=== PATIENT | female | born 1985 | race African-American/Black ===

== ENCOUNTER 2021-11-25 15:37 | Inpatient (IN) | payer MEDICAID ==
[~2021-11-25] VITALS: Ht 175.3 cm; Wt 56.7 kg
[~2021-11-25 15:37] MED LIST: ACET325T53 GT; BLOO-360 XX; INSU100V SQ; INSU100V9 SQ; LOVI40 SQ; METO-442 GT; PRO40 GT
[2021-11-25 15:40] VITALS: BP_SYST 102
[2021-11-25] MEDS ORDERED: levETIRAcetam 1,000 MG IV BAG 100 ML IV ONE (15:45)
[2021-11-25] MEDS ORDERED: PIPERACILLIN/TAZO 3.375 GM in NS 50 ML IV ONE (16:15)
[2021-11-25] MEDS ORDERED: VANCOMYCIN HCL 1,000 MG in NS 250 ML IV ONE (16:15)
[2021-11-25 16:24] LABS: BASOPHILS # (AUTO) 0.1 K/uL (0.0-0.2); BASOPHILS % (AUTO) 3.7 % (0.0-2.0); EOSINOPHILS # (AUTO) 0.1 K/uL (0.0-0.4); EOSINOPHILS % (AUTO) 1.7 % (0.0-4.0); HEMATOCRIT 38.8 % (36-48); LYMPHOCYTES % (AUTO) 26.2 % (20.5-51.5); MEAN CORPUSCULAR HEMOGLOBIN 28 pg (27-31); MEAN CORPUSCULAR HGB CONC 34 % (32-36); MEAN CORPUSCULAR VOLUME 84 fL (79.0-98.0); MONOCYTES # (AUTO) 0.1 K/uL (0.0-1.0); MONOCYTES % (AUTO) 3.3 % (1.7-9.3); NEUTROPHILS # (AUTO) 2.5 K/uL (1.8-7.7); NEUTROPHILS % (AUTO) 65.1 % (40.0-70.0); PLATELET COUNT (AUTO) 249 K/uL (130-430); RED BLOOD CELL COUNT(AUTO) 4.64 MIL/uL (4.2-6.2); RED CELL DISTRIBUTION WIDTH 14.7 % (9.0-15.0); WHITE BLOOD COUNT (AUTO) 3.9 K/uL (4.8-10.8)
[2021-11-25 16:39] LABS: CALCIUM 9.9 mg/dL (8.4-11.0); CREATININE 0.77 mg/dL (0.55-1.30); POTASSIUM 3.9 mmol/L (3.5-5.1)
[2021-11-25 16:44] LABS: ALBUMIN 3.2 g/dL (3.4-4.8); TOTAL BILIRUBIN 0.1 mg/dL (0.0-1.0)
[2021-11-25] MEDS ORDERED: VANCOMYCIN HCL 1000 MG/VIAL IV ONE (17:20)
[2021-11-25 17:25] LABS: BILIRUBIN,URINE NEGATIVE (NEGATIVE); COLOR,URINE YELLOW (YELLOW); GLUCOSE,URINE NEGATIVE (NEGATIVE); KETONES,URINE NEGATIVE (NEGATIVE); LEUKOCYTE ESTERASE ,URINE NEGATIVE (NEGATIVE); NITRITE, URINE NEGATIVE (NEGATIVE); PROTEIN URINE NEGATIVE (NEGATIVE); UROBILINOGEN,URINE 0.2 (0.2-1.0)
[2021-11-25 17:27] LABS: BLOOD, URINE TRACE (NEGATIVE); CLARITY/URINE HAZY (CLEAR)
[2021-11-25 17:47] LABS: BACTERIA,URINE MODERATE /HPF (None Seen); MUCUS,URINE 1+ /LPF (None Seen); RBC,URINE 0-3 /HPF (0-3); WBC,URINE 0-3 /HPF (0-3)
[2021-11-25] MEDS ORDERED: D5/0.45 NS 1,000 ML IV ONE (20:00)
[2021-11-25 20:48] VITALS: BP_SYST 131
[2021-11-25 23:56] VITALS: BP_SYST 137
[2021-11-26 01:02] VITALS: BP_SYST 127
[2021-11-26 07:50] VITALS: BP_SYST 109
[2021-11-26 08:00] VITALS: BP_SYST 119
[2021-11-26] MEDS ORDERED: HYDROcodone/ACETAMIN 5-325 MG TAB (NORCO/ VICODIN) GT PRN (11:30)
[2021-11-26] MEDS ORDERED: ACETAMINOPHEN 325 MG TABLET GT SCH (11:30)
[2021-11-26] MEDS ORDERED: HYDROcodone/ACETAMIN 10-325 MG TAB GT PRN (11:30)
[2021-11-26] MEDS ORDERED: NALOXONE HCL 0.4 MG/ML AMP (NARCAN) IVP PRN ×2 (11:30)
[2021-11-26] MEDS ORDERED: LORazepam 2 MG/ML VIAL IVP PRN (11:30)
[2021-11-26] MEDS ORDERED: ONDANSETRON HCL 4 MG/2 ML VIAL IVP PRN (11:30)
[2021-11-26 11:35] VITALS: BP_SYST 114
[2021-11-26] MEDS ORDERED: ACETAMINOPHEN 325 MG TABLET GT PRN (11:45)
[2021-11-26] MEDS ORDERED: ACETAMINOPHEN 650 MG/20.3 ML UDC GT PRN ×2 (11:45)
[2021-11-26] MEDS: INSULIN REGULAR, HUMAN 100 UNITS/ML, 10 ML VIAL (humuLIN R) SUBCUT PRN ×2 (12:23→16:33)
[2021-11-26] MEDS: PIPERACILLIN/TAZO 3.375/DEX-IS 50 ML IV SCH ×2 (12:30→17:12)
[2021-11-26] MEDS: ALBUTEROL SULFATE 0.083% 2.5 MG/3 ML VIAL.NEB INH SCH ×3 (15:00→23:49)
[2021-11-26] MEDS: IPRATROPIUM BROM 0.5 MG/2.5 ML VIAL.NEB (ATROVENT) INH SCH ×3 (15:00→23:49)
[2021-11-26 15:31] VITALS: BP_SYST 120
[2021-11-26 20:50] VITALS: BP_SYST 145
[2021-11-26] MEDS: METOPROLOL TARTRATE 50 MG TABLET GT SCH (22:42)
[2021-11-26] MEDS: INSULIN GLARGINE 100 UNITS/ML 10 ML VIAL SQ SCH (22:49)
[2021-11-27 00:12] VITALS: BP_SYST 127
[2021-11-27] MEDS: PIPERACILLIN/TAZO 3.375/DEX-IS 50 ML IV SCH ×2 (00:21→06:02)
[2021-11-27] MEDS: IPRATROPIUM BROM 0.5 MG/2.5 ML VIAL.NEB (ATROVENT) INH SCH ×5 (03:22→23:28)
[2021-11-27] MEDS: ALBUTEROL SULFATE 0.083% 2.5 MG/3 ML VIAL.NEB INH SCH ×6 (03:22→23:28)
[2021-11-27 07:11] LABS: BASOPHILS % (AUTO) 0.5 % (0.0-2.0); EOSINOPHILS # (AUTO) 0.1 K/uL (0.0-0.4); EOSINOPHILS % (AUTO) 1.6 % (0.0-4.0); HEMATOCRIT 38.4 % (36-48); HEMOGLOBIN 12.5 g/dL (12.0-16.0); LYMPHOCYTES # (AUTO) 1.5 K/uL (1.0-5.5); LYMPHOCYTES % (AUTO) 28.3 % (20.5-51.5); MEAN CORPUSCULAR HEMOGLOBIN 27 pg (27-31); MEAN CORPUSCULAR HGB CONC 33 % (32-36); MEAN CORPUSCULAR VOLUME 84 fL (79.0-98.0); MONOCYTES # (AUTO) 0.5 K/uL (0.0-1.0); MONOCYTES % (AUTO) 9.7 % (1.7-9.3); NEUTROPHILS # (AUTO) 3.1 K/uL (1.8-7.7); NEUTROPHILS % (AUTO) 59.9 % (40.0-70.0); PLATELET COUNT (AUTO) 271 K/uL (130-430); RED BLOOD CELL COUNT(AUTO) 4.58 MIL/uL (4.2-6.2); RED CELL DISTRIBUTION WIDTH 14.9 % (9.0-15.0); WHITE BLOOD COUNT (AUTO) 5.2 K/uL (4.8-10.8)
[2021-11-27 07:38] LABS: ALBUMIN 3.1 g/dL (3.4-4.8); CALCIUM 9.7 mg/dL (8.4-11.0); CREATININE 0.88 mg/dL (0.55-1.30); PHOSPHORUS 5.2 mg/dL (2.7-4.5); POTASSIUM 4.2 mmol/L (3.5-5.1); TOTAL BILIRUBIN 0.3 mg/dL (0.0-1.0)
[2021-11-27] MEDS ORDERED: LORazepam 2 MG/ML VIAL IVP ONE (07:45)
[2021-11-27 07:50] VITALS: BP_SYST 107
[2021-11-27 07:56] VITALS: BP_SYST 107
[2021-11-27] MEDS ORDERED: PANTOPRAZOLE SODIUM 40 MG TAB GT SCH (09:00)
[2021-11-27] MEDS: D5/0.45 NS 1,000 ML IV SCH ×2 (09:29→22:38)
[2021-11-27] MEDS: LANSOPRAZOLE 30 MG CAPSULE.DR GT SCH (09:29)
[2021-11-27] MEDS: METOPROLOL TARTRATE 50 MG TABLET GT SCH ×2 (09:30→21:00)
[2021-11-27] MEDS: ENOXAPARIN SODIUM 40 MG/0.4 ML SYRINGE SQ SCH (09:32)
[2021-11-27] MEDS: levETIRAcetam 1,000 MG in NS 100 ML IV SCH ×2 (10:02→22:15)
[2021-11-27] MEDS: INSULIN GLARGINE 100 UNITS/ML 10 ML VIAL SQ SCH ×2 (11:02→22:21)
[2021-11-27] MEDS: INSULIN REGULAR, HUMAN 100 UNITS/ML, 10 ML VIAL (humuLIN R) SUBCUT PRN (11:05)
[2021-11-27 12:25] VITALS: BP_SYST 110
[2021-11-27 16:14] VITALS: BP_SYST 114
[2021-11-27 20:00] VITALS: BP_SYST 123
[2021-11-27] MEDS: clonazePAM 0.5 MG TABLET PO SCH (22:17)
[2021-11-28 00:35] VITALS: BP_SYST 115
[2021-11-28] MEDS ORDERED: LORazepam 2 MG/ML VIAL IVP PRN (06:45)
[2021-11-28 06:46] LABS: CALCIUM 8.8 mg/dL (8.4-11.0); CREATININE 0.7 mg/dL (0.55-1.30); POTASSIUM 3.6 mmol/L (3.5-5.1)
[2021-11-28 07:29] LABS: BASOPHILS % (AUTO) 0.6 % (0.0-2.0); EOSINOPHILS # (AUTO) 0.2 K/uL (0.0-0.4); EOSINOPHILS % (AUTO) 5.3 % (0.0-4.0); HEMATOCRIT 33.4 % (36-48); HEMOGLOBIN 11.1 g/dL (12.0-16.0); LYMPHOCYTES # (AUTO) 1.4 K/uL (1.0-5.5); LYMPHOCYTES % (AUTO) 35.5 % (20.5-51.5); MEAN CORPUSCULAR HEMOGLOBIN 28 pg (27-31); MEAN CORPUSCULAR HGB CONC 33 % (32-36); MEAN CORPUSCULAR VOLUME 84 fL (79.0-98.0); MONOCYTES # (AUTO) 0.3 K/uL (0.0-1.0); MONOCYTES % (AUTO) 8.7 % (1.7-9.3); NEUTROPHILS # (AUTO) 1.9 K/uL (1.8-7.7); NEUTROPHILS % (AUTO) 49.9 % (40.0-70.0); PLATELET COUNT (AUTO) 257 K/uL (130-430); RED BLOOD CELL COUNT(AUTO) 3.98 MIL/uL (4.2-6.2); RED CELL DISTRIBUTION WIDTH 14.8 % (9.0-15.0); WHITE BLOOD COUNT (AUTO) 3.8 K/uL (4.8-10.8)
[2021-11-28] MEDS: IPRATROPIUM BROM 0.5 MG/2.5 ML VIAL.NEB (ATROVENT) INH SCH ×4 (07:34→20:13)
[2021-11-28] MEDS: ALBUTEROL SULFATE 0.083% 2.5 MG/3 ML VIAL.NEB INH SCH ×4 (07:34→20:13)
[2021-11-28 08:00] VITALS: BP_SYST 141
[2021-11-28] MEDS: D5/0.45 NS 1,000 ML IV SCH (10:01)
[2021-11-28] MEDS: clonazePAM 0.5 MG TABLET PO SCH ×2 (10:02→21:55)
[2021-11-28] MEDS: LANSOPRAZOLE 30 MG CAPSULE.DR GT SCH (10:02)
[2021-11-28] MEDS: METOPROLOL TARTRATE 50 MG TABLET GT SCH ×2 (10:02→21:00)
[2021-11-28] MEDS: INSULIN GLARGINE 100 UNITS/ML 10 ML VIAL SQ SCH ×2 (10:13→21:00)
[2021-11-28] MEDS: ENOXAPARIN SODIUM 40 MG/0.4 ML SYRINGE SQ SCH (10:15)
[2021-11-28] MEDS: levETIRAcetam 1,000 MG in NS 100 ML IV SCH ×2 (10:44→21:57)
[2021-11-28 12:00] VITALS: BP_SYST 137
[2021-11-28] MEDS ORDERED: cefTRIAXone 1 GM in D5W 50 ML IV SCH (12:00)
[2021-11-28 16:00] VITALS: BP_SYST 119
[2021-11-28] MEDS: DEXTROSE 50% JECT 50 ML DISP.SYRIN IVP PRN ×2 (18:59→22:11)
[2021-11-28 20:00] VITALS: BP_SYST 106
[2021-11-29] MEDS: ALBUTEROL SULFATE 0.083% 2.5 MG/3 ML VIAL.NEB INH SCH ×7 (00:04→23:34)
[2021-11-29] MEDS: IPRATROPIUM BROM 0.5 MG/2.5 ML VIAL.NEB (ATROVENT) INH SCH ×7 (00:04→23:34)
[2021-11-29] MEDS ORDERED: CIPROFLOXACIN LACT 400 MG/D5W 200 ML IV ONE (00:52)
[2021-11-29 00:56] VITALS: BP_SYST 132
[2021-11-29] MEDS: CIPROFLOXACIN LACT 400 MG/D5W 200 ML IV SCH ×3 (01:24→20:38)
[2021-11-29 08:01] LABS: ALANINE AMINOTRANSFERASE 43 U/L (12-78); ANION GAP 10 (5-15); ASPARTATE AMINOTRANSFERASE 21 U/L (10-37); CALCIUM 8.8 mg/dL (8.4-11.0); CHLORIDE 107 mmol/L (98-107); CREATININE 0.71 mg/dL (0.55-1.30); GLUCOSE 108 mg/dL (70-99); POTASSIUM 3.9 mmol/L (3.5-5.1); SODIUM SERUM 140 mmol/L (136-145); TOTAL BILIRUBIN < 0.1 mg/dL (0.0-1.0); UREA NITROGEN, BLOOD 9 mg/dL (8-21)
[2021-11-29 08:12] LABS: BASOPHILS % (AUTO) 0.6 % (0.0-2.0); EOSINOPHILS # (AUTO) 0.1 K/uL (0.0-0.4); HEMATOCRIT 34.4 % (36-48); HEMOGLOBIN 11.3 g/dL (12.0-16.0); LYMPHOCYTES # (AUTO) 1.5 K/uL (1.0-5.5); LYMPHOCYTES % (AUTO) 41.5 % (20.5-51.5); MEAN CORPUSCULAR HEMOGLOBIN 28 pg (27-31); MEAN CORPUSCULAR HGB CONC 33 % (32-36); MEAN CORPUSCULAR VOLUME 85 fL (79.0-98.0); MONOCYTES # (AUTO) 0.2 K/uL (0.0-1.0); MONOCYTES % (AUTO) 5.9 % (1.7-9.3); NEUTROPHILS # (AUTO) 1.7 K/uL (1.8-7.7); PLATELET COUNT (AUTO) 252 K/uL (130-430); RED BLOOD CELL COUNT(AUTO) 4.06 MIL/uL (4.2-6.2); RED CELL DISTRIBUTION WIDTH 14.7 % (9.0-15.0); WHITE BLOOD COUNT (AUTO) 3.6 K/uL (4.8-10.8)
[2021-11-29 08:14] LABS: GFR AFRICAN AMERICAN 119 mL/min (>90)
[2021-11-29 09:07] LABS: ERYTHROCYTE SEDIMENTATION RATE 46 MM/HR (0-20)
[2021-11-29] MEDS: LANSOPRAZOLE 30 MG CAPSULE.DR GT SCH (10:03)
[2021-11-29] MEDS: clonazePAM 0.5 MG TABLET PO SCH ×2 (10:03→20:37)
[2021-11-29] MEDS: METOPROLOL TARTRATE 50 MG TABLET GT SCH (10:04)
[2021-11-29] MEDS: levETIRAcetam 1,000 MG in NS 100 ML IV SCH ×2 (10:05→19:46)
[2021-11-29] MEDS: ENOXAPARIN SODIUM 40 MG/0.4 ML SYRINGE SQ SCH (10:06)
[2021-11-29 11:33] LABS: FREE T4 (FREE THYROXINE) 1.3 ng/dl (0.8-1.5); THYROID STIMULATING HORMONE 3.17 uIu/mL (0.36-3.74)
[2021-11-29 12:10] VITALS: BP_SYST 125
[2021-11-29 16:11] VITALS: BP_SYST 124
[2021-11-29 19:54] VITALS: BP_SYST 138
[2021-11-29] MEDS: INSULIN REGULAR, HUMAN 100 UNITS/ML, 10 ML VIAL (humuLIN R) SUBCUT PRN (23:35)
[2021-11-30 00:37] VITALS: BP_SYST 146
[2021-11-30] MEDS: IPRATROPIUM BROM 0.5 MG/2.5 ML VIAL.NEB (ATROVENT) INH SCH ×6 (03:47→23:39)
[2021-11-30] MEDS: ALBUTEROL SULFATE 0.083% 2.5 MG/3 ML VIAL.NEB INH SCH ×6 (03:47→23:39)
[2021-11-30] MEDS: INSULIN REGULAR, HUMAN 100 UNITS/ML, 10 ML VIAL (humuLIN R) SUBCUT PRN ×3 (06:05→18:11)
[2021-11-30 07:55] LABS: BASOPHILS % (AUTO) 0.5 % (0.0-2.0); EOSINOPHILS # (AUTO) 0.1 K/uL (0.0-0.4); EOSINOPHILS % (AUTO) 1.3 % (0.0-4.0); HEMATOCRIT 33.9 % (36-48); HEMOGLOBIN 11.1 g/dL (12.0-16.0); LYMPHOCYTES # (AUTO) 0.9 K/uL (1.0-5.5); LYMPHOCYTES % (AUTO) 9.8 % (20.5-51.5); MEAN CORPUSCULAR HEMOGLOBIN 28 pg (27-31); MEAN CORPUSCULAR HGB CONC 33 % (32-36); MEAN CORPUSCULAR VOLUME 84 fL (79.0-98.0); MONOCYTES # (AUTO) 0.4 K/uL (0.0-1.0); MONOCYTES % (AUTO) 4.2 % (1.7-9.3); NEUTROPHILS # (AUTO) 7.4 K/uL (1.8-7.7); NEUTROPHILS % (AUTO) 84.2 % (40.0-70.0); PLATELET COUNT (AUTO) 292 K/uL (130-430); RED BLOOD CELL COUNT(AUTO) 4.02 MIL/uL (4.2-6.2); RED CELL DISTRIBUTION WIDTH 15.2 % (9.0-15.0); WHITE BLOOD COUNT (AUTO) 8.8 K/uL (4.8-10.8)
[2021-11-30 07:56] LABS: C-REACTIVE PROTEIN QUANT 1.1 mg/dL (0-0.5); CALCIUM 9.2 mg/dL (8.4-11.0); CREATININE 0.73 mg/dL (0.55-1.30)
[2021-11-30 09:19] LABS: ERYTHROCYTE SEDIMENTATION RATE 36 MM/HR (0-20)
[2021-11-30] MEDS: METOPROLOL TARTRATE 50 MG TABLET PO SCH ×2 (10:16→21:54)
[2021-11-30] MEDS: LANSOPRAZOLE 30 MG CAPSULE.DR GT SCH (10:16)
[2021-11-30] MEDS: clonazePAM 0.5 MG TABLET PO SCH ×2 (10:16→21:54)
[2021-11-30] MEDS: CIPROFLOXACIN LACT 400 MG/D5W 200 ML IV SCH ×2 (10:17→21:54)
[2021-11-30] MEDS: ENOXAPARIN SODIUM 40 MG/0.4 ML SYRINGE SQ SCH (10:18)
[2021-11-30] MEDS: levETIRAcetam 1,000 MG in NS 100 ML IV SCH ×2 (10:19→21:57)
[2021-11-30] MEDS ORDERED: CIPR500T5 GT (10:55)
[2021-11-30] MEDS ORDERED: LEVE1000 GT (10:55)
[2021-11-30] MEDS ORDERED: KLO.5 GT (10:55)
[2021-11-30 11:28] VITALS: BP_SYST 109
[2021-11-30 15:52] VITALS: BP_SYST 110
[2021-11-30 19:55] VITALS: BP_SYST 105
[2021-12-01 01:21] VITALS: BP_SYST 106
[2021-12-01] MEDS: IPRATROPIUM BROM 0.5 MG/2.5 ML VIAL.NEB (ATROVENT) INH SCH ×3 (03:30→11:16)
[2021-12-01] MEDS: ALBUTEROL SULFATE 0.083% 2.5 MG/3 ML VIAL.NEB INH SCH ×3 (03:30→11:16)
[2021-12-01] MEDS: INSULIN REGULAR, HUMAN 100 UNITS/ML, 10 ML VIAL (humuLIN R) SUBCUT PRN ×2 (05:44→12:50)
[2021-12-01 07:32] LABS: BASOPHILS % (AUTO) 0.1 % (0.0-2.0); EOSINOPHILS # (AUTO) 0.1 K/uL (0.0-0.4); EOSINOPHILS % (AUTO) 0.5 % (0.0-4.0); HEMATOCRIT 30.5 % (36-48); HEMOGLOBIN 10.1 g/dL (12.0-16.0); LYMPHOCYTES # (AUTO) 1.3 K/uL (1.0-5.5); LYMPHOCYTES % (AUTO) 9.8 % (20.5-51.5); MEAN CORPUSCULAR HEMOGLOBIN 28 pg (27-31); MEAN CORPUSCULAR HGB CONC 33 % (32-36); MEAN CORPUSCULAR VOLUME 83 fL (79.0-98.0); MONOCYTES # (AUTO) 0.6 K/uL (0.0-1.0); MONOCYTES % (AUTO) 4.3 % (1.7-9.3); NEUTROPHILS % (AUTO) 85.3 % (40.0-70.0); PLATELET COUNT (AUTO) 255 K/uL (130-430); RED BLOOD CELL COUNT(AUTO) 3.66 MIL/uL (4.2-6.2); RED CELL DISTRIBUTION WIDTH 15.3 % (9.0-15.0)
[2021-12-01 08:21] LABS: ALBUMIN 2.6 g/dL (3.4-4.8); CALCIUM 8.6 mg/dL (8.4-11.0); CREATININE 0.88 mg/dL (0.55-1.30); POTASSIUM 3.7 mmol/L (3.5-5.1); TOTAL BILIRUBIN 0.1 mg/dL (0.0-1.0)
[2021-12-01 09:24] LABS: C-REACTIVE PROTEIN QUANT 26.9 mg/dL (0-0.5)
[2021-12-01] MEDS: levETIRAcetam 1,000 MG in NS 100 ML IV SCH (09:31)
[2021-12-01] MEDS: LANSOPRAZOLE 30 MG CAPSULE.DR GT SCH (09:32)
[2021-12-01] MEDS: CIPROFLOXACIN LACT 400 MG/D5W 200 ML IV SCH (09:33)
[2021-12-01] MEDS: clonazePAM 0.5 MG TABLET PO SCH (09:33)
[2021-12-01] MEDS: METOPROLOL TARTRATE 50 MG TABLET PO SCH (09:33)
[2021-12-01] MEDS: ENOXAPARIN SODIUM 40 MG/0.4 ML SYRINGE SQ SCH (09:34)
[2021-12-01 11:43] VITALS: BP_SYST 109
[2021-12-01 12:02] LABS: ERYTHROCYTE SEDIMENTATION RATE 65 MM/HR (0-20)
[2021-12-01 13:33] VITALS: BP_SYST 132
== END 2021-12-01 15:40 | DRG 720 ==
LOC: SED 15:37 → STU 19:47
PROVIDERS: ADMIT Preventive Medicine Preventive Medicine/Occupational Environmental Medicine; ATTEND Preventive Medicine Preventive Medicine/Occupational Environmental Medicine
PROC: 5A1955Z Respiratory Ventilation, Greater than 96 Consecutive Hours (ICD-10-PCS; principal; 2021-11-25)
DX: A41.9 Sepsis, unspecified organism (principal); J96.10 Chronic respiratory failure, unspecified whether with hypoxia or hypercapnia; J15.1 Pneumonia due to Pseudomonas; E83.39 Other disorders of phosphorus metabolism; E88.09 Other disorders of plasma-protein metabolism, not elsewhere classified; D64.9 Anemia, unspecified; E11.65 Type 2 diabetes mellitus with hyperglycemia; Z20.822 Contact with and (suspected) exposure to COVID-19; G40.409 Other generalized epilepsy and epileptic syndromes, not intractable, without status epilepticus; K21.9 Gastro-esophageal reflux disease without esophagitis; R13.10 Dysphagia, unspecified; Z86.73 Personal history of transient ischemic attack (TIA), and cerebral infarction without residual deficits; Z59.00 Homelessness unspecified; Z79.4 Long term (current) use of insulin; Z93.0 Tracheostomy status; Z99.11 Dependence on respirator [ventilator] status; Z79.899 Other long term (current) drug therapy
CPT/HCPCS: 36415; 71045; 80048; 80053; 81000; 82962; 83605; 83735; 84100; 84439; 84443; 85025; 85651-TC; 86140; 87040; 87070-TC; 87081; 87086; 87205-TC; 93005; 94002; 94003; 94640; 94760; 96365; 96367; 96368; 99291; G0378; J0696; J0744; J1650; J1815; J1953; J2405; J2543; J3370; J7060; J7613

== ENCOUNTER 2022-06-08 06:44 | Emergency (ER) | payer MEDICAID ==
[~2022-06-08] VITALS: Ht 170.2 cm; Wt 49.9 kg
[~2022-06-08 06:44] MED LIST changes: +CIPR500T5 GT; +KLO.5 GT; +LEVE1000 GT
--- NOTE | 2022-06-08 06:48 | NUR ---
PT RAYNA, MATTIE 63, FROM [facility] WITH C/O RESP DISTRESS. PER MEDIC REPORT, PT STARTED COUGHING AND DESATING TO 87% AFTER TRACH CHANGE AND 250ML FLUIDS SUCTIONED. PT CHRONIC VENT AND HAS G-TUBE IN PLACE. BLOOD GLUCOSE PER MEDIC WAS 307. MD AND RT AT BEDSIDE ON ARRIVAL.
--- NOTE | 2022-06-08 06:50 | NUR ---
Patient to ER bed 01 to gown for evaluation. Side rails up. Report given to DUSTIN VINCENT.
[2022-06-08 06:51] VITALS: BP_SYST 114
--- NOTE | 2022-06-08 07:07 | NUR ---
BLOOD GLUCOSE 313. MADE AWARE.
[2022-06-08 07:12] LABS: BASOPHILS % (AUTO) 0.4 % (0.0-2.0); EOSINOPHILS # (AUTO) 0.1 K/uL (0.0-0.4); EOSINOPHILS % (AUTO) 0.9 % (0.0-4.0); HEMATOCRIT 31.2 % (36-48); HEMOGLOBIN 10.5 g/dL (12.0-16.0); LYMPHOCYTES # (AUTO) 0.6 K/uL (1.0-5.5); LYMPHOCYTES % (AUTO) 10.1 % (20.5-51.5); MEAN CORPUSCULAR HEMOGLOBIN 28 pg (27-31); MEAN CORPUSCULAR HGB CONC 34 % (32-36); MEAN CORPUSCULAR VOLUME 84 fL (79.0-98.0); MONOCYTES # (AUTO) 0.5 K/uL (0.0-1.0); MONOCYTES % (AUTO) 8.7 % (1.7-9.3); NEUTROPHILS # (AUTO) 4.9 K/uL (1.8-7.7); NEUTROPHILS % (AUTO) 79.9 % (40.0-70.0); PLATELET COUNT (AUTO) 233 K/uL (130-430); RED CELL DISTRIBUTION WIDTH 14.9 % (9.0-15.0); WHITE BLOOD COUNT (AUTO) 6.2 K/uL (4.8-10.8)
[2022-06-08] MEDS ORDERED: NACL 0.9% 1,000 ML IV ONE (07:30)
[2022-06-08 07:39] LABS: ANION GAP 9 (5-15); CALCIUM 9.4 mg/dL (8.4-11.0); CHLORIDE 97 mmol/L (98-107); CREATININE 0.86 mg/dL (0.55-1.30); GLUCOSE 324 mg/dL (70-99); UREA NITROGEN, BLOOD 16 mg/dL (8-21)
[2022-06-08 07:44] LABS: GFR AFRICAN AMERICAN 95 mL/min (>90)
[2022-06-08] MEDS ORDERED: LORazepam 2 MG/ML VIAL IVP ONE (07:45)
[2022-06-08 07:47] LABS: ALANINE AMINOTRANSFERASE 36 U/L (12-78); ALBUMIN 2.8 g/dL (3.4-4.8); ASPARTATE AMINOTRANSFERASE 17 U/L (10-37); TOTAL BILIRUBIN 0.2 mg/dL (0.0-1.0)
--- NOTE | 2022-06-08 07:56 | NUR ---
Report received from plant operator/shift supervisor CARLTON Cevallos for continuity of care. Patient stable condition.
[2022-06-08 11:06] VITALS: BP_SYST 116
--- NOTE | 2022-06-08 11:12 | NUR ---
covid/flu swab collected
--- NOTE | 2022-06-08 11:33 | NUR ---
Patient was at yesterday when she "passed out" according to daughter and ambulance was called. Patient was ok to stay at . Patient was at assisted living today and she "vomited again and passed out today." Ambulance was called.
--- NOTE | 2022-06-08 12:52 | NUR ---
CRITICAL LAB: FLU A POSITIVE READ BY CHAO OF LAB NOTIFIED
[2022-06-08] MEDS ORDERED: OSEL6SUS4 GT (12:57)
--- NOTE | 2022-06-08 13:41 | NUR ---
Patient repositioned as appropriate. Changed as needed.
[2022-06-08] MEDS ORDERED: ACETAMINOPHEN 650 MG/20.3 ML UDC GT ONE (15:45)
== END 2022-06-08 18:05 | disposition home or self-care (01) ==
LOC: SED 06:44
DX: J10.1 Influenza due to other identified influenza virus with other respiratory manifestations (principal); J96.11 Chronic respiratory failure with hypoxia; R05.9 Cough, unspecified; Z79.4 Long term (current) use of insulin; Z79.899 Other long term (current) drug therapy; Z20.822 Contact with and (suspected) exposure to COVID-19
CPT/HCPCS: 99285; 96374; 71045; 96361; 87426; 80053; 82962; 83880; 85025; 84484; 36415; 93005; 94760; 87804 ×2; 94002; J2060; J7030

== ENCOUNTER 2022-06-10 19:59 | Inpatient (IN) | payer MEDICAID ==
[~2022-06-10] VITALS: Ht 175.3 cm; Wt 53.5 kg
[~2022-06-10 19:59] MED LIST changes: +OSEL6SUS4 GT
--- NOTE | 2022-06-10 20:15 | NUR ---
Sing at bedside examining pt.
--- NOTE | 2022-06-10 20:15 | NUR ---
Patient triaged and placed in ED rm 6. VSS and patient appears in no acute distress at this time. MD Bull notified of need for MSE. RT at bedside. Report given to CARLTON Zapata.
--- NOTE | 2022-06-10 20:20 | NUR ---
RT at bedside.
--- NOTE | 2022-06-10 20:20 | NUR ---
Patient presents to ED from [facility] with c/o vomiting x1 today and desaturating to 80's. Patient is vent dependent. Per [facility] patient was suctioned and bagged on way to ED. RT is at bedside upon patient arrival. Patient is A/Ox2 and bed bound at baseline. ER MD Bal notified
[2022-06-10 21:18] LABS: CALCIUM 10.7 mg/dL (8.4-11.0); CREATININE 0.79 mg/dL (0.55-1.30)
[2022-06-10 21:30] LABS: ALBUMIN 2.9 g/dL (3.4-4.8); C-REACTIVE PROTEIN QUANT 14.2 mg/dL (0-0.5); TOTAL BILIRUBIN 0.1 mg/dL (0.0-1.0)
[2022-06-10] MEDS ORDERED: cefTRIAXone 1 GM in D5W 50 ML IV ONE (21:45)
--- NOTE | 2022-06-10 22:02 | NUR ---
Patient resting comfortably in bed with side rails raised.
[2022-06-10] MEDS ORDERED: cefTRIAXone 1 GM VIAL ONE (22:05)
[2022-06-10] MEDS ORDERED: NACL 0.9% 2,000 ML IV ONE (22:15)
--- NOTE | 2022-06-10 22:31 | NUR ---
COVID SAMPLE COLLECTED AND SENT TO LAB
[2022-06-10] MEDS ORDERED: CEFEPIME 1 GM in D5W 50 ML IV ONE (23:00)
--- NOTE | 2022-06-10 23:44 | NUR ---
MRSA SAMPLE COLLECTED AND SENT TO LAB
--- NOTE | 2022-06-11 | NUR ---
# 20 gauge angiocath placed to RIGHT UPPER ARM. Use of asceptic technique. Opsite placed over site. Blood return noted. Flushed with 10 cc of normal saline. No evidence of infiltration noted. Patient tolerated well.
[2022-06-11 00:13] LABS: BASOPHILS % (AUTO) 0.7 % (0.0-2.0); EOSINOPHILS # (AUTO) 0.6 K/uL (0.0-0.4); EOSINOPHILS % (AUTO) 9.2 % (0.0-4.0); HEMATOCRIT 30.7 % (36-48); HEMOGLOBIN 10.2 g/dL (12.0-16.0); LYMPHOCYTES # (AUTO) 0.3 K/uL (1.0-5.5); MEAN CORPUSCULAR HEMOGLOBIN 28 pg (27-31); MEAN CORPUSCULAR HGB CONC 33 % (32-36); MEAN CORPUSCULAR VOLUME 85 fL (79.0-98.0); MONOCYTES # (AUTO) 0.2 K/uL (0.0-1.0); MONOCYTES % (AUTO) 2.9 % (1.7-9.3); NEUTROPHILS # (AUTO) 4.9 K/uL (1.8-7.7); NEUTROPHILS % (AUTO) 82.2 % (40.0-70.0); PLATELET COUNT (AUTO) 306 K/uL (130-430); RED CELL DISTRIBUTION WIDTH 15.1 % (9.0-15.0)
[2022-06-11] MEDS ORDERED: CEFEPIME 1 GM/VIAL (MAXIPIME) ONE (00:48)
--- NOTE | 2022-06-11 01:24 | NUR ---
Admit bed requested Patient will be admitted to care of Dr.A MEJIA. Admitted to TELE unit. Diagnosis RESPIRATORY FAILURE Inpatient (Yes or No) YES Observation (Yes or No) NO Orientation concerns or request close to nursing station (Yes or No) YES Covid Status NEGATIVE On vent or bipap VENT Isolation requirements NO Needs a sitter NO From Home (Yes or if No enter name of facility) [facility] Requires Dialysis (Yes or No) NO Med Rec Completed (Yes of No) YES
[2022-06-11] MEDS ORDERED: ROCPM1 IV (01:35)
[2022-06-11] MEDS ORDERED: CHLO473M5 PO (01:35)
[2022-06-11] MEDS ORDERED: ALBU2.5V7 INH ×2 (01:35)
--- NOTE | 2022-06-11 01:35 | NUR ---
Medication reconciliation completed with information provided by [facility]. Any prior medication reconciliation on file was reviewed and corrected.
--- NOTE | 2022-06-11 02:50 | NUR ---
SPO2 99%, respirations even and non-labored. FiO2 decreased to 35% per RT.
--- NOTE | 2022-06-11 03:30 | NUR ---
Pt had a large soft and brown BM. Pt cleaned and fresh linens and gown applied. Pt begins coughing, suction provided with copious ngo colored secretions removed.
--- NOTE | 2022-06-11 03:50 | NUR ---
Pt transported to CT via stretcher with cardiac catheterization technologist and accompanied by ACLS RN, RT, and EMT. Pt continues to be on mechanical ventilator via Trach with settings: A/C, 14, 450, 35%, 5. SPO2 98%. Respirations even and non-labored, VSS.
--- NOTE | 2022-06-11 03:50 | NUR ---
Patient taken to CT via gurney accompanied by RN and RT.
--- NOTE | 2022-06-11 04:26 | NUR ---
patient back from CT accompained by RN and RT at this time.
[2022-06-11] MEDS: D5/0.45 NS 1,000 ML IV SCH ×3 (05:46→21:18)
--- NOTE | 2022-06-11 07:11 | NUR ---
Report given to CARLTON Esparza to assume care of patient at this time.
--- NOTE | 2022-06-11 07:30 | NUR ---
RECEIVED PT FROM CARLTON CHENG. PT LETHAGIC, ABLE TO FOLLOW SIMPLE COMMANDS ONLY. PT ON VENT AC/VC RR 14, TV 450, FIO2 35%, PEEP 5. RESP E/U. O2 SAT 98%. GTUBE IN PLACE, SITE WNL. ABDOMEN SOFT, NONTENDER, NONDISTENDED. SKIN WARM, INTACT, NO EDEMA. DISTAL PULSES NORMAL. NO S/S OF PAIN NOTED.
--- NOTE | 2022-06-11 09:26 | NUR ---
D5 1/2 NS INITIATED AT 100ML/HOUR
--- NOTE | 2022-06-11 10:39 | NUR ---
DR. MEJIA AT THE BEDSIDE
[2022-06-11] MEDS ORDERED: ALBUTEROL SULFATE 0.083% 2.5 MG/3 ML VIAL.NEB INH SCH ×3 (11:00→15:00)
[2022-06-11] MEDS ORDERED: ACETAMINOPHEN 325 MG TABLET GT PRN (11:00)
[2022-06-11] MEDS ORDERED: cefTRIAXone 1 GM IVPB PREMIX 50 ML IV SCH (11:00)
[2022-06-11] MEDS ORDERED: ONDANSETRON HCL 4 MG/2 ML VIAL IVP PRN (11:00)
[2022-06-11] MEDS: IPRATROPIUM BROM 0.5 MG/2.5 ML VIAL.NEB (ATROVENT) INH SCH ×4 (11:00→22:59)
[2022-06-11 11:32] LABS: BILIRUBIN,URINE NEGATIVE (NEGATIVE); BLOOD, URINE NEGATIVE (NEGATIVE); CLARITY/URINE CLEAR (CLEAR); COLOR,URINE YELLOW (YELLOW); GLUCOSE,URINE 3+ (NEGATIVE); KETONES,URINE NEGATIVE (NEGATIVE); LEUKOCYTE ESTERASE ,URINE NEGATIVE (NEGATIVE); NITRITE, URINE NEGATIVE (NEGATIVE); PROTEIN URINE NEGATIVE (NEGATIVE); UROBILINOGEN,URINE 0.2 (0.2-1.0)
[2022-06-11 11:41] LABS: BACTERIA,URINE None Seen /HPF (None Seen); MUCUS,URINE None Seen /LPF (None Seen); RBC,URINE 0-3 /HPF (0-3); WBC,URINE 0-3 /HPF (0-3)
--- NOTE | 2022-06-11 11:48 | NUR ---
SPOKE TO DR. TRUJILLO, RECEIVED ORDER FOR ROCEPHIN 1GM Q 24 HOURS, TYLENOL 65O VIA GTUBE PRN PAIN AND TEMP. ORDERS CARRIED OUT.
[2022-06-11 11:50] VITALS: BP_SYST 106
[2022-06-11] MEDS ORDERED: IPRATROPIUM/ALBUTEROL SULFATE 3 ML AMPUL.NEB (DUONEB) INH SCH (13:00)
--- NOTE | 2022-06-11 13:32 | NUR ---
REPORTED TO DR. CHAVIRA PT'S HAS EXCESSIVE GAS FROM GTUBE, PT'S IS HAVING A HARD TIME CLEARING VERY THICK SECRETIONS. RECEIVED ORDER FOR CT AB/PELVIS WITHOUT CONTRAST, MUCOMYST Q4, GI CONSULT DR. BROWN. DR. BROWN PAGED BY POPPY, DISTRIBUTION OPERATIONS MANAGER.
[2022-06-11] MEDS: ACETAMINOPHEN 650 MG/20.3 ML UDC GT PRN (13:50)
[2022-06-11] MEDS: ALBUTEROL SULFATE 0.083% 2.5 MG/3 ML VIAL.NEB INH PRN ×3 (15:20→22:59)
[2022-06-11] MEDS: NORMAL SALINE 5 ML DISP.SYRIN IVF SCH ×4 (15:26→21:20)
[2022-06-11] MEDS: ACETYLCYSTEINE 20% 4 ML VIAL (RT) INH SCH ×3 (15:29→23:00)
--- NOTE | 2022-06-11 17:25 | NUR ---
REPORTED CT SCAN OF ABDOMEN/PELVIS TO DR. BROWN. RECEIVED ORDER TO HOLD TUBE FEEDING, DO NOT ACCESS GTUBE, KEEP GTUBE GLAZIER STAINED GLASS. DR. BROWN WILL ASSESS PT TOMORROW.
--- NOTE | 2022-06-11 18:01 | NUR ---
RECEIVED BEDSIDE SBAR FOR ER PATIENT ON VENT G-TUBE, BED AT LOW POSITION CALL LIGHT IN REACH WILL MONITOR PATIENT
--- NOTE | 2022-06-11 18:05 | NUR ---
Patient will be admitted to care of CARLTON MERINO. Admitted to TELEMETRY unit. Will go to room 120A. Belongings list completed. Complete and up to date summary report printed. SBAR report to be given at bedside with opportunity for questions.
--- NOTE | 2022-06-11 19:03 | NUR ---
CLOSING NOTE PATIENT REMAINS STABLE BED AT LOW POSITION, CALL LIGHT IN REACH WILL GIVE BEDSIDE SBAR TO MARINE EQUIPMENT PRESERVATION INSPECTOR NURSE.
[2022-06-11] MEDS: levETIRAcetam 500 MG TABLET GT SCH ×2 (21:00→21:02)
[2022-06-11] MEDS: clonazePAM 0.5 MG TABLET GT SCH ×2 (21:00→21:02)
[2022-06-11] MEDS: METOPROLOL TARTRATE 25 MG TABLET GT SCH ×2 (21:00→21:02)
[2022-06-11] MEDS: INSULIN GLARGINE 100 UNITS/ML, 10 ML VIAL SQ SCH (21:06)
[2022-06-11] MEDS: CHLORHEXIDINE GLUC 0.12% 15 ML MOUTHWASH UDC MM SCH (21:18)
--- NOTE | 2022-06-11 21:30 | NUR ---
PAGED DR.A. MEJIA
--- NOTE | 2022-06-11 21:42 | NUR ---
Shift Summary: patient is AAOX0. patient unable to follow command. patient tachycardic sustaining >120s. medications held due to nurse communication orders to not access G-tube until cleared. physician paged to request IV medication for heart rate. pending call back. will continue to monitor patient. call light within reach, bed set to low, locked, and alarm on. Addendum: 06/11/22 at 2217 by Shawna Franco RN RN change oral Keppra and metropolol from G-tube route to IV per Dr. Hector. Addendum: 06/11/22 at 2222 by Shawna Franco RN RN Metoprolol 10mg and Keppra 500mg IV orders placed per physician. Addendum: 06/11/22 at 2339 by Shawna Franco RN RN unable to complete admission questionnaire due to patient not being alert.
--- NOTE | 2022-06-11 22:11 | NUR ---
PAGED FOR THE 2ND TIME
[2022-06-11 22:56] VITALS: BP_SYST 158
[2022-06-11] MEDS: METOPROLOL TARTRATE 5 MG/5 ML VIAL IVP SCH (23:25)
[2022-06-11] MEDS: PIPERACILLIN/TAZO 3.375/DEX-IS 50 ML IV SCH (23:25)
[2022-06-12] VITALS: BP_SYST 142
[2022-06-12] MEDS: levETIRAcetam 500 MG in NS 100 ML IV SCH ×3 (00:46→22:03)
[2022-06-12] MEDS: PIPERACILLIN/TAZO 3.375/DEX-IS 50 ML IV SCH ×3 (05:00→17:40)
[2022-06-12] MEDS: NORMAL SALINE 5 ML DISP.SYRIN IVF SCH ×4 (05:00→22:08)
[2022-06-12 07:54] LABS: BASOPHILS % (AUTO) 0.1 % (0.0-2.0); EOSINOPHILS % (AUTO) 0.1 % (0.0-4.0); HEMATOCRIT 30.7 % (36-48); HEMOGLOBIN 10.1 g/dL (12.0-16.0); LYMPHOCYTES # (AUTO) 0.4 K/uL (1.0-5.5); LYMPHOCYTES % (AUTO) 2.6 % (20.5-51.5); MEAN CORPUSCULAR HEMOGLOBIN 28 pg (27-31); MEAN CORPUSCULAR HGB CONC 33 % (32-36); MEAN CORPUSCULAR VOLUME 85 fL (79.0-98.0); MONOCYTES # (AUTO) 0.8 K/uL (0.0-1.0); MONOCYTES % (AUTO) 4.9 % (1.7-9.3); NEUTROPHILS # (AUTO) 14.7 K/uL (1.8-7.7); NEUTROPHILS % (AUTO) 92.3 % (40.0-70.0); PLATELET COUNT (AUTO) 435 K/uL (130-430); RED BLOOD CELL COUNT(AUTO) 3.62 MIL/uL (4.2-6.2); RED CELL DISTRIBUTION WIDTH 15.3 % (9.0-15.0); WHITE BLOOD COUNT (AUTO) 15.9 K/uL (4.8-10.8)
[2022-06-12 08:00] VITALS: BP_SYST 153
[2022-06-12 08:03] LABS: CALCIUM 9.6 mg/dL (8.4-11.0); CREATININE 0.78 mg/dL (0.55-1.30)
[2022-06-12 08:12] LABS: C-REACTIVE PROTEIN QUANT 38.1 mg/dL (0-0.5)
[2022-06-12] MEDS: IPRATROPIUM BROM 0.5 MG/2.5 ML VIAL.NEB (ATROVENT) INH SCH ×5 (08:34→23:05)
[2022-06-12] MEDS: ENOXAPARIN SODIUM 30 MG/0.3 ML SYRINGE SQ SCH (08:56)
[2022-06-12] MEDS: METOPROLOL TARTRATE 5 MG/5 ML VIAL IVP SCH ×2 (08:59→22:05)
[2022-06-12] MEDS: AZITHROMYCIN 500 MG in NS 250 ML IV SCH (09:00)
[2022-06-12] MEDS: CHLORHEXIDINE GLUC 0.12% 15 ML MOUTHWASH UDC MM SCH ×2 (09:00→22:27)
[2022-06-12] MEDS: INSULIN GLARGINE 100 UNITS/ML, 10 ML VIAL SQ SCH ×2 (09:11→22:32)
[2022-06-12] MEDS ORDERED: POLYETHYLENE GLYCOL 3350, 17 GM/ POWD.PACK PO ONE (09:45)
[2022-06-12] MEDS ORDERED: MINERAL OIL 30 ML UDC PO ONE (09:45)
[2022-06-12 11:59] LABS: ERYTHROCYTE SEDIMENTATION RATE 101 MM/HR (0-20)
[2022-06-12] MEDS: ACETYLCYSTEINE 20% 4 ML VIAL (RT) INH SCH ×5 (12:23→23:05)
[2022-06-12] MEDS: ALBUTEROL SULFATE 0.083% 2.5 MG/3 ML VIAL.NEB INH PRN ×4 (12:32→23:05)
[2022-06-12] MEDS ORDERED: cefTRIAXone 1 GM IVPB PREMIX 50 ML IV SCH (13:00)
[2022-06-12] MEDS: ACETAMINOPHEN 650 MG/20.3 ML UDC GT PRN ×4 (14:47→17:44)
--- NOTE | 2022-06-12 16:28 | NUR ---
THE PATIENT IS NONVERBAL, ABLE TO OPEN EYES SPONTANEOUSLY. THE PATIENT IS ON A VENTILATOR AND TRACHEOSTOMY. NO SOB NOTED AT THIS TIME. THE PATIENT SUCTIONED VIA TRACH AND VIA MOUTH, SMALL WHITE SECRETIONS NOTED. THE PATIENT GIVEN ALL MEDICATIONS PER MD ORDERS. THE PATIENT MADE COMFORTABLE, VIATLA SIGNS TAKEN, ALL WITHIN NORMAL LIMITS. THE PATIENT'S ROOM IS LOCATED IN FRONT OF THE NURSES STATION. GTUBE IN PLACE, DRAINING TO GRAVITY AT THIS TIME. WILL CONTINUE TO MONITOR.
[2022-06-12] MEDS: LORazepam 2 MG/ML VIAL IVP PRN (22:06)
[2022-06-12] MEDS: clonazePAM 0.5 MG TABLET GT SCH (22:06)
[2022-06-12] MEDS: POLYETHYLENE GLYCOL 3350, 17 GM/ POWD.PACK PO SCH (22:08)
[2022-06-12] MEDS: D5/0.45 NS 1,000 ML IV SCH (22:09)
[2022-06-13] VITALS (21 sets, daily range): BP systolic 71–138
[2022-06-13] MEDS: PIPERACILLIN/TAZO 3.375/DEX-IS 50 ML IV SCH ×4 (00:09→18:24)
--- NOTE | 2022-06-13 02:20 | NUR ---
RN NOTES VENT CHANGE DONE BY RT ANGELIQUE VT- 450, RATE- 24, PEEP 5 AND TO TITRATE FIO2 TO KEEP O2 SATURATION OVER 90%
[2022-06-13] MEDS: D5/0.45 NS 1,000 ML IV SCH ×2 (05:15→09:15)
[2022-06-13] MEDS: NORMAL SALINE 5 ML DISP.SYRIN IVF SCH ×2 (05:15→14:42)
[2022-06-13 06:57] LABS: BASOPHILS % (AUTO) 0.1 % (0.0-2.0); EOSINOPHILS % (AUTO) 0.1 % (0.0-4.0); HEMATOCRIT 24.4 % (36-48); HEMOGLOBIN 8.1 g/dL (12.0-16.0); LYMPHOCYTES # (AUTO) 0.7 K/uL (1.0-5.5); LYMPHOCYTES % (AUTO) 7.2 % (20.5-51.5); MEAN CORPUSCULAR HEMOGLOBIN 28 pg (27-31); MEAN CORPUSCULAR HGB CONC 33 % (32-36); MEAN CORPUSCULAR VOLUME 85 fL (79.0-98.0); MONOCYTES # (AUTO) 0.5 K/uL (0.0-1.0); NEUTROPHILS # (AUTO) 9.1 K/uL (1.8-7.7); NEUTROPHILS % (AUTO) 87.6 % (40.0-70.0); PLATELET COUNT (AUTO) 361 K/uL (130-430); RED BLOOD CELL COUNT(AUTO) 2.88 MIL/uL (4.2-6.2); RED CELL DISTRIBUTION WIDTH 15.1 % (9.0-15.0); WHITE BLOOD COUNT (AUTO) 10.3 K/uL (4.8-10.8)
[2022-06-13 07:16] LABS: CALCIUM 8.9 mg/dL (8.4-11.0); CREATININE 0.81 mg/dL (0.55-1.30)
[2022-06-13 07:32] LABS: C-REACTIVE PROTEIN QUANT 40.9 mg/dL (0-0.5)
--- NOTE | 2022-06-13 08:00 | NUR ---
THE PATIENT IS NONVERBAL. PATIENT RESTING IN BED. NO SIGNS OF PAIN OR DISCOMFORT NOTED AT THIS TIME. THE PATIENT IS ON A VENTILATOR AND TRACHEOSTOMY. NO SOB NOTED AT THIS TIME. BED LOCKED AT LOWEST POSITION, SIDE RAILS UP, CALL LIGHT WITHIN REACH. WILL CONTINUE TO MONITOR.
[2022-06-13] MEDS: IPRATROPIUM BROM 0.5 MG/2.5 ML VIAL.NEB (ATROVENT) INH SCH ×5 (08:11→23:05)
[2022-06-13] MEDS: ALBUTEROL SULFATE 0.083% 2.5 MG/3 ML VIAL.NEB INH PRN ×4 (08:11→20:00)
[2022-06-13] MEDS: ACETYLCYSTEINE 20% 4 ML VIAL (RT) INH SCH ×5 (08:12→23:05)
[2022-06-13 08:30] LABS: ERYTHROCYTE SEDIMENTATION RATE 127 MM/HR (0-20)
[2022-06-13] MEDS: MINERAL OIL 30 ML UDC PO SCH (09:00)
[2022-06-13] MEDS: POLYETHYLENE GLYCOL 3350, 17 GM/ POWD.PACK PO SCH ×2 (09:00→20:43)
[2022-06-13] MEDS: METOPROLOL TARTRATE 5 MG/5 ML VIAL IVP SCH ×2 (09:00→20:45)
[2022-06-13] MEDS: AZITHROMYCIN 500 MG in NS 250 ML IV SCH (09:21)
[2022-06-13] MEDS: clonazePAM 0.5 MG TABLET GT SCH ×2 (09:23→20:43)
[2022-06-13] MEDS: LANSOPRAZOLE 30 MG CAPSULE.DR GT SCH ×2 (09:23→09:26)
[2022-06-13] MEDS: ENOXAPARIN SODIUM 30 MG/0.3 ML SYRINGE SQ SCH (09:23)
--- NOTE | 2022-06-13 09:23 | NUR ---
THE PATIENT SUCTIONED VIA TRACH AND VIA MOUTH, MINIMAL SECRETIONS NOTED. VITAL SIGNS TAKEN, ALL WITHIN NORMAL LIMITS. G-TUBE IN PLACE. WILL CONTINUE TO MONITOR.
[2022-06-13] MEDS: CHLORHEXIDINE GLUC 0.12% 15 ML MOUTHWASH UDC MM SCH ×2 (09:24→20:46)
[2022-06-13] MEDS: levETIRAcetam 500 MG in NS 100 ML IV SCH ×2 (09:25→20:43)
[2022-06-13] MEDS: INSULIN GLARGINE 100 UNITS/ML, 10 ML VIAL SQ SCH ×2 (09:27→20:49)
--- NOTE | 2022-06-13 09:30 | NUR ---
RT AT BESIDE, VENTILATOR KEEPS ALARMING AND PEAK IS HIGH. RT SUCTIONS PATIENT.
--- NOTE | 2022-06-13 10:10 | NUR ---
PATIENTS OXYGEN SATURATION DROPPING. RT AT BEDSIDE, SUCTIONING PATIENT AND ASSESSING. DR MEJIA AT BEDSIDE. ORDERS GIVEN FOR CHEST XRAY AND NECK XRAY. PATIENTS RESPIRATIONS APPEAR LABORED. WILL CONTACT HYDROGEN CELL TENDER
--- NOTE | 2022-06-13 10:25 | NUR ---
RAPID RESPONSE ACTIVATED. PATIENT OXYGENATION DROPPING. NO PULSE FOUND AND CODE BLUE WAS IMMEDIATELY ACTIVATED. PATIENT TAKEN OFF VENTILATOR AND COMPRESSION STARTED WELL BAGGING PATIENT. CODE BLUE TEAM AT BEDSIDE. SPOKE TO KYLIE ESTRELLA, ORDERS GIVEN AND CARRIED OUT. CODE BLUE TERMINATED AT 1035. PATIENT CONTINUES TO BE BAGGED VIA AMBU BAG.
--- NOTE | 2022-06-13 10:40 | NUR ---
PATIENT TRANSFERRED TO ICU. REPORT GIVEN TO ICU NURSE SPOKE TO DR CHAVIRA, ABG RESULTS GIVEN TO DOCTOR. VERBALIZED UNDERSTANDING. INFORMED DR CHAVIRA PATIENT BEING VENTILATED VIA AMBU BAG BECAUSE SHE IS NOT TOLERATING VENTILATOR.
[2022-06-13] MEDS ORDERED: KCL 40 mEq in 100 mL (PREMIX) 100 ML IV ONE (10:45)
--- NOTE | 2022-06-13 10:45 | NUR ---
RN NOTES TRANSFER FROM [facility] S/P CODE BLUE. PATIENT PLACED COMFORTABLY ON BED. SCOPE SHOWS SINUS RHYTHM. PATIENT STILL BEING AMBU BAGGED DUE TO LOW O2 SATURATION. ER MD AT BEDSIDE
[2022-06-13] MEDS ORDERED: SODIUM BICARBONATE 8.4% JECT 50 MEQ/50 ML SYRINGE ONE (10:49)
--- NOTE | 2022-06-13 11:00 | NUR ---
RN NOTES CODE BLUE CALLED, PEA - ASYSTOLE ON THE MONITOR, CHEST COMPRESSION INITIATED. ACLS MEDS GIVEN, SEE CODE BLUE RECORD. PT WAS INTUBATED BY DR. HAMILTON, PAO/. ROSC AT 1116. NORMAL SALINE BOLUS GIVEN ORDERED. WILL MONITOR PT CLOSELY.
--- NOTE | 2022-06-13 11:16 | NUR ---
1015 STARTED BAGGED PATIENT DUE TO PATIENT DESAT AND INCREASED WORK OF BREATHING. 1025 CODE BLUE CALLED. 1040 ROSC. 1049 TRANSFERRED TO ICU 3. 1100 CODE BLUE. 1109 INTUBATED PATIENT BY ER MD HAMILTON. ETT 7.12/11 AT LIP LINE. 1115 ROSC. 1116 BACK TO VENT SETTINGS WITH [id number], F30, PEEP +5, FIO2 100% ORDERED BY MD CHAVIRA ON THE PHONE. ABG FOLLOWS IN AN HOUR.
[2022-06-13] MEDS ORDERED: NOREPINEPHRINE 4 MG/4 ML VIAL IV ONE (11:31)
[2022-06-13] MEDS ORDERED: NACL 0.9% 1,000 ML IV ONE (12:00)
[2022-06-13] MEDS: NOREPINEPHRINE BITARTRATE 8 MG in D5W 242 ML IV PRN (12:03)
[2022-06-13] MEDS ORDERED: SODIUM BICARBONATE 8.4% JECT 50 MEQ/50 ML SYRINGE IVP ONE ×2 (12:15→12:53)
[2022-06-13] MEDS ORDERED: ROCURONIUM BROMIDE 10 MG/ML (ZEMURON) IV ONE (12:53)
[2022-06-13] MEDS ORDERED: EPINEPHrine JECT 0.1 MG/ML SYR IVP ONE (12:53)
[2022-06-13] MEDS ORDERED: ETOMIDATE 20 MG/ 10 ML VIAL (AMIDATE) IVP ONE (12:53)
[2022-06-13] MEDS ORDERED: NS 1000 ML IV.SOLN IV ONE (12:53)
--- NOTE | 2022-06-13 12:55 | NUR ---
CHANGED VENT SETTINGS TO PC 23, F30, PEEP +10, FIO2 100% PER MD CHAVIRA ORDER.
--- NOTE | 2022-06-13 13:04 | NUR ---
Spoke with Rupesh for consulting Dr. Watson
--- NOTE | 2022-06-13 13:05 | NUR ---
RN NOTES ABG RESULTS RELAYED TO DR. CHAVIRA, WITH ORDERS. WILL REQUEST RT TO CHANGE VENT SETTING.
--- NOTE | 2022-06-13 14:20 | NUR ---
RT NOTES Received intubated, leak noted from ETT, possibly due to trach tube remains in place as well. Vent settings to AC 24 450 +5 80% per Dr Watson's order. Per RN Lexi, Dr Watson, said to keep trach tube in place.
[2022-06-13] MEDS: VANCOMYCIN HCL 750 MG in NS 250 ML IV SCH ×2 (14:41→20:43)
[2022-06-13] MEDS: KCL 20 mEq in 100 mL (PREMIX) 100 ML IV SCH ×2 (14:42→20:45)
--- NOTE | 2022-06-13 16:00 | NUR ---
RN NOTES PM CARE DONE, PATIENT REPOSITIONED FOR COMFORT.
[2022-06-13] MEDS ORDERED: DIATR MEGLU/DIATRIZ SOD 30 ML SOLUTION PO ONE (16:48)
[2022-06-13] MEDS ORDERED: GASTROGRAFIN 120 ML ONE (16:52)
--- NOTE | 2022-06-13 18:00 | NUR ---
RN NOTES BS - 192 MG/DL
[2022-06-13] MEDS: ACETAMINOPHEN 650 MG/20.3 ML UDC GT PRN (18:24)
--- NOTE | 2022-06-13 18:30 | NUR ---
RN NOTES ON SAME VENT SETTING, SPO2 GOOD. PATIENT REMAINED SEDATED. LEVO DRIP INFUSING FOR BP SUPPORT. VITALS STABLE.
[2022-06-13] MEDS: PROPOFOL DRIP 100 ML IV PRN (19:07)
--- NOTE | 2022-06-13 19:30 | NUR ---
PM ASSESSMENT REPORT RECEIVED FROM NEDA VINCENT. PT RECEIVED IN BED WITH EYES CLOSED, NO S/S OF ACUTE DISTRESS NOTED. PT INTUBATED, VENT SETTINGS AC 24, TV 450, FIO2 70%, PEEP 5. PLUGGED TRACH SITE NOTED. KARY 20G IN PLACE, PATENT AND INTACT. LEVOPHED AND DIPRIVAN DRIPS RUNNING PER ORDERS. GT IN PLACE TO MILES. FC IN PLACE DRAINING URINE TO GRAVITY. HOB ELEVATED, BED IN LOWEST POSITION, CALL LIGHT IN REACH. WILL CONTINUE TO MONITOR PT.
--- NOTE | 2022-06-13 20:00 | NUR ---
PICC LINE PICC LINE NURSE AT BEDSIDE FOR PICC PLACEMENT.
--- NOTE | 2022-06-13 22:00 | NUR ---
ENDORSEMENT BEDSIDE REPORT GIVEN TO BRIGIDA VINCENT FOR ASSUMPTION OF CARE.
--- NOTE | 2022-06-13 23:00 | NUR ---
Patient intubated eye opening is noted to light touch , ventilator FI02 70 % chest movement shallow Respirations Regular also unlabored HOB elevated comfort measures implemented position change tolerated no SOB noted / .
[2022-06-14] VITALS (32 sets, daily range): BP systolic 94–119
[2022-06-14] MEDS: NORMAL SALINE 5 ML DISP.SYRIN IVF SCH ×4 (00:59→21:41)
[2022-06-14] MEDS: PIPERACILLIN/TAZO 3.375/DEX-IS 50 ML IV SCH ×5 (01:02→23:53)
--- NOTE | 2022-06-14 01:24 | NUR ---
Frequent eye opening noted FI02 50 % 02 SAT 100 % suction thick white sputum up right position , procedure tolerated .
[2022-06-14] MEDS: ACETYLCYSTEINE 20% 4 ML VIAL (RT) INH SCH ×4 (03:50→23:30)
[2022-06-14] MEDS: IPRATROPIUM BROM 0.5 MG/2.5 ML VIAL.NEB (ATROVENT) INH SCH ×4 (03:50→23:30)
[2022-06-14] MEDS: PROPOFOL DRIP 100 ML IV PRN ×3 (06:18→21:43)
[2022-06-14] MEDS: VANCOMYCIN HCL 750 MG in NS 250 ML IV SCH ×3 (06:20→21:40)
[2022-06-14 06:41] LABS: BASOPHILS % (AUTO) 0.1 % (0.0-2.0); EOSINOPHILS % (AUTO) 0.3 % (0.0-4.0); HEMOGLOBIN 7.4 g/dL (12.0-16.0); LYMPHOCYTES # (AUTO) 1.1 K/uL (1.0-5.5); LYMPHOCYTES % (AUTO) 14.6 % (20.5-51.5); MEAN CORPUSCULAR HEMOGLOBIN 28 pg (27-31); MEAN CORPUSCULAR HGB CONC 33 % (32-36); MEAN CORPUSCULAR VOLUME 84 fL (79.0-98.0); MONOCYTES # (AUTO) 0.4 K/uL (0.0-1.0); MONOCYTES % (AUTO) 5.8 % (1.7-9.3); NEUTROPHILS % (AUTO) 79.2 % (40.0-70.0); PLATELET COUNT (AUTO) 347 K/uL (130-430); RED BLOOD CELL COUNT(AUTO) 2.64 MIL/uL (4.2-6.2); RED CELL DISTRIBUTION WIDTH 14.3 % (9.0-15.0); WHITE BLOOD COUNT (AUTO) 7.6 K/uL (4.8-10.8)
--- NOTE | 2022-06-14 06:50 | NUR ---
Reposition & Turning patient loose stool noted , partial bed bath given foam dressing applied to sacral area , position change tolerated / .
[2022-06-14 07:03] LABS: CALCIUM 8.4 mg/dL (8.4-11.0); CREATININE 0.7 mg/dL (0.55-1.30)
[2022-06-14] MEDS ORDERED: FENTANYL CITRATE-0.9 % NACL/PF 100 ML IV PRN (08:00)
[2022-06-14 08:43] LABS: C-REACTIVE PROTEIN QUANT 41.1 mg/dL (0-0.5)
[2022-06-14] MEDS: FENTANYL CITRATE-0.9 % NACL/PF 100 ML IV PRN (08:56)
[2022-06-14] MEDS: INSULIN GLARGINE 100 UNITS/ML, 10 ML VIAL SQ SCH ×2 (09:00→21:43)
[2022-06-14] MEDS: POLYETHYLENE GLYCOL 3350, 17 GM/ POWD.PACK PO SCH ×2 (09:00→21:39)
[2022-06-14] MEDS: METOPROLOL TARTRATE 5 MG/5 ML VIAL IVP SCH ×2 (09:00→21:00)
[2022-06-14] MEDS: clonazePAM 0.5 MG TABLET GT SCH ×2 (09:00→21:37)
[2022-06-14] MEDS: MINERAL OIL 30 ML UDC PO SCH (09:00)
--- NOTE | 2022-06-14 09:29 | NUR ---
0775 DR CHAVIRA CHANGED OUT TRACH TO PORTEX 7. ETT REMOVED. BRONCHOSCOPY DONE. VOLUMES ACHIEVED, ABG DONE. WILL CONT TO MONITOR PT. Addendum: 06/14/22 at 0935 by Roz Bueno RT Amended: Links added.
[2022-06-14] MEDS ORDERED: POTASSIUM CHLORIDE 20 MEQ/PKT PACKET PO ONE (09:30)
[2022-06-14] MEDS: ENOXAPARIN SODIUM 30 MG/0.3 ML SYRINGE SQ SCH (10:06)
[2022-06-14] MEDS: AZITHROMYCIN 500 MG in NS 250 ML IV SCH (10:07)
[2022-06-14] MEDS: levETIRAcetam 500 MG in NS 100 ML IV SCH ×2 (10:08→21:37)
[2022-06-14] MEDS: LANSOPRAZOLE 30 MG CAPSULE.DR GT SCH (10:09)
[2022-06-14] MEDS: CHLORHEXIDINE GLUC 0.12% 15 ML MOUTHWASH UDC MM SCH ×2 (10:13→21:39)
[2022-06-14] MEDS: D5W 1,000 ML IV SCH ×2 (11:37→21:40)
--- NOTE | 2022-06-14 11:54 | NUR ---
at 0745 am , Dr. bueno extubated pt and apply a new Portex trach size 7 at the ols hole of old trach nad pt was gagging so he ordered sedation to be continued and added fentanyl drip to calm down the pt.
--- NOTE | 2022-06-14 11:56 | NUR ---
at [address] Scott Hector was called thru answering service to inform K-2.8 and Hgb. 7.4 and Na was 150
--- NOTE | 2022-06-14 11:58 | NUR ---
At [address] Hector ordered 40 meq of po Potassium and given thru GT
--- NOTE | 2022-06-14 12:02 | NUR ---
At [address] Villela ordered Glucerna at 20 ml per hour and started at 1030 am
--- NOTE | 2022-06-14 12:04 | NUR ---
Na result was 150 and BS-70 and started at 1115 am O5koamt at 100 ml / hr
[2022-06-14 12:05] LABS: ERYTHROCYTE SEDIMENTATION RATE > 140 MM/HR (0-20)
--- NOTE | 2022-06-14 12:53 | NUR ---
at 0800 am diprivan was up to 50 mcg/kg/ min while awaiting for Fentanyl drip. At 0900 am pt is very calm and Rass--2. The roving department supervisor and charge nurse is aware that we cant get any pump with label of Fentanly this time. We will try to look for a new pump
[2022-06-14] MEDS: ACETAMINOPHEN 650 MG/20.3 ML UDC GT PRN (14:08)
--- NOTE | 2022-06-14 19:30 | NUR ---
Pt report received. Pt resting quietly, respirations even and non-labored, [id number]: A/C 24, 450, 40%, 5. Thick ngo colored secretions removed via suction. KARY PICC patent and secure with Propofol drip at 50 mcg/kg/min, Levophed drip at 0.05 mcg/kg/min, Fentanyl drip at 25 mg/hr, and D5W at 100 mL/hr. Glucerna 1.2 infusing at 20 mL/hr via G-tube with 20 mL residual. F/C patent with straw colored and sedimented urine. Pt repositioned for comfort and oral care provided. VSS, NAD.
[2022-06-14] MEDS: ALBUTEROL SULFATE 0.083% 2.5 MG/3 ML VIAL.NEB INH PRN (19:46)
[2022-06-15] VITALS (30 sets, daily range): BP systolic 92–139
[2022-06-15] MEDS: INSULIN REGULAR, HUMAN 100 UNITS/ML, 3 ML VIAL (humuLIN R) SUBCUT PRN (00:38)
[2022-06-15] MEDS: IPRATROPIUM BROM 0.5 MG/2.5 ML VIAL.NEB (ATROVENT) INH SCH ×6 (03:15→23:00)
[2022-06-15] MEDS: ACETYLCYSTEINE 20% 4 ML VIAL (RT) INH SCH ×6 (03:15→23:00)
--- NOTE | 2022-06-15 06:10 | NUR ---
Finger stick 56 mg/dL. D50 x 1 amp given IVP.
[2022-06-15] MEDS ORDERED: DEXTROSE 50% JECT 50 ML DISP.SYRIN IVP ONE (06:15)
[2022-06-15] MEDS ORDERED: DEXTROSE 50% JECT 50 ML DISP.SYRIN ONE (06:15)
--- NOTE | 2022-06-15 06:20 | NUR ---
HR dropped to mid 40's. Fentanyl drip turned off. HR slowly returns to mid 70's with PACs noted.
[2022-06-15] MEDS ORDERED: DEXTROSE 50%-WATER 50 ML DISP.SYRIN IVP PRN (06:30)
[2022-06-15] MEDS ORDERED: GLUCOSE (DEXTROSE) ORAL GEL -Adults PO PRN (06:30)
[2022-06-15] MEDS ORDERED: D5W 1,000 ML IV PRN (06:30)
--- NOTE | 2022-06-15 06:30 | NUR ---
Repeat fingerstick blood sugar: 182. HR remains in mid 70's with occasional PACs. Fentanyl drip remains off. NAD noted.
[2022-06-15] MEDS: VANCOMYCIN HCL 750 MG in NS 250 ML IV SCH ×3 (06:31→22:43)
[2022-06-15] MEDS: PIPERACILLIN/TAZO 3.375/DEX-IS 50 ML IV SCH ×3 (06:32→17:17)
[2022-06-15] MEDS: NORMAL SALINE 5 ML DISP.SYRIN IVF SCH ×3 (06:32→22:44)
[2022-06-15 07:09] LABS: ALBUMIN 1.8 g/dL (3.4-4.8); CALCIUM 8.2 mg/dL (8.4-11.0); CREATININE 0.92 mg/dL (0.55-1.30); PHOSPHORUS 1.6 mg/dL (2.7-4.5); TOTAL BILIRUBIN 0.4 mg/dL (0.0-1.0)
--- NOTE | 2022-06-15 07:20 | NUR ---
Pt report given to oncoming RN. Pt sedated, vent settings: A/C, 24, 450, 30%, 5. PICC KARY with Levophed drip at 0.1 mcg/kg/min, Propofol drip at 40 mcg/kg/min, D5W at 100 mL/hr. Glucerna 1.5 at 20 mL/hr via GT. F/C draining hazy yellow urine with sedimentation noted. Total U/O 800 mL. No BM this shift. VSS, NAD.
[2022-06-15 08:06] LABS: BASOPHILS % (AUTO) 0.4 % (0.0-2.0); EOSINOPHILS # (AUTO) 0.2 K/uL (0.0-0.4); EOSINOPHILS % (AUTO) 2.9 % (0.0-4.0); LYMPHOCYTES # (AUTO) 1.1 K/uL (1.0-5.5); LYMPHOCYTES % (AUTO) 15.9 % (20.5-51.5); MEAN CORPUSCULAR HEMOGLOBIN 28 pg (27-31); MEAN CORPUSCULAR HGB CONC 34 % (32-36); MEAN CORPUSCULAR VOLUME 84 fL (79.0-98.0); MONOCYTES # (AUTO) 0.4 K/uL (0.0-1.0); MONOCYTES % (AUTO) 6.5 % (1.7-9.3); NEUTROPHILS # (AUTO) 4.9 K/uL (1.8-7.7); NEUTROPHILS % (AUTO) 74.3 % (40.0-70.0); PLATELET COUNT (AUTO) 312 K/uL (130-430); RED BLOOD CELL COUNT(AUTO) 2.41 MIL/uL (4.2-6.2); RED CELL DISTRIBUTION WIDTH 14.9 % (9.0-15.0); WHITE BLOOD COUNT (AUTO) 6.6 K/uL (4.8-10.8)
[2022-06-15 08:18] LABS: HEMATOCRIT 20.2 % (36-48); HEMOGLOBIN 6.8 g/dL (12.0-16.0)
[2022-06-15] MEDS ORDERED: POTASSIUM CHLORIDE 20 MEQ/PKT PACKET PO ONE (08:45)
[2022-06-15] MEDS ORDERED: KCL 40 mEq in 100 mL (PREMIX) 100 ML IV ONE (08:45)
[2022-06-15] MEDS: METOPROLOL TARTRATE 5 MG/5 ML VIAL IVP SCH ×2 (09:00→21:36)
[2022-06-15] MEDS: INSULIN GLARGINE 100 UNITS/ML, 10 ML VIAL SQ SCH ×2 (09:00→21:37)
[2022-06-15 09:04] LABS: C-REACTIVE PROTEIN QUANT 30.5 mg/dL (0-0.5)
[2022-06-15] MEDS: levETIRAcetam 500 MG in NS 100 ML IV SCH ×2 (09:05→21:42)
[2022-06-15] MEDS: AZITHROMYCIN 500 MG in NS 250 ML IV SCH (09:06)
[2022-06-15] MEDS: LANSOPRAZOLE 30 MG CAPSULE.DR GT SCH (09:13)
[2022-06-15] MEDS: clonazePAM 0.5 MG TABLET GT SCH ×2 (09:14→21:13)
[2022-06-15] MEDS: CHLORHEXIDINE GLUC 0.12% 15 ML MOUTHWASH UDC MM SCH ×2 (09:16→21:15)
[2022-06-15] MEDS: ENOXAPARIN SODIUM 30 MG/0.3 ML SYRINGE SQ SCH (09:17)
[2022-06-15] MEDS: MINERAL OIL 30 ML UDC PO SCH (09:29)
[2022-06-15] MEDS: POLYETHYLENE GLYCOL 3350, 17 GM/ POWD.PACK PO SCH ×2 (09:29→21:14)
[2022-06-15] MEDS: PROPOFOL DRIP 100 ML IV PRN ×3 (10:56→19:52)
[2022-06-15] MEDS: ALBUTEROL SULFATE 0.083% 2.5 MG/3 ML VIAL.NEB INH PRN ×4 (11:04→23:00)
[2022-06-15] MEDS ORDERED: K PHOS 30 MM in NS 250 ML IV ONE (13:00)
--- NOTE | 2022-06-15 13:48 | NUR ---
HIGH ALERT NOTE: Called Dr. Scott Hector back at , identified within the medical roster to verify physician authenticity. Re: K Phos 30mmol IVPB X 1dose.
[2022-06-15 14:52] LABS: ERYTHROCYTE SEDIMENTATION RATE 116 MM/HR (0-20)
[2022-06-15] MEDS ORDERED: FUROSEMIDE 20 MG/2 ML VIAL IVP ONE (15:00)
[2022-06-15] MEDS: D5W 1,000 ML IV SCH ×2 (17:30→17:44)
[2022-06-15 21:01] LABS: BASOPHILS % (AUTO) 0.2 % (0.0-2.0); EOSINOPHILS # (AUTO) 0.1 K/uL (0.0-0.4); EOSINOPHILS % (AUTO) 2.1 % (0.0-4.0); HEMATOCRIT 28.9 % (36-48); HEMOGLOBIN 9.8 g/dL (12.0-16.0); LYMPHOCYTES # (AUTO) 0.8 K/uL (1.0-5.5); LYMPHOCYTES % (AUTO) 10.6 % (20.5-51.5); MEAN CORPUSCULAR HEMOGLOBIN 29 pg (27-31); MEAN CORPUSCULAR HGB CONC 34 % (32-36); MEAN CORPUSCULAR VOLUME 85 fL (79.0-98.0); MONOCYTES # (AUTO) 0.4 K/uL (0.0-1.0); MONOCYTES % (AUTO) 5.3 % (1.7-9.3); NEUTROPHILS # (AUTO) 5.9 K/uL (1.8-7.7); NEUTROPHILS % (AUTO) 81.8 % (40.0-70.0); PLATELET COUNT (AUTO) 392 K/uL (130-430); RED BLOOD CELL COUNT(AUTO) 3.39 MIL/uL (4.2-6.2); RED CELL DISTRIBUTION WIDTH 15.6 % (9.0-15.0); WHITE BLOOD COUNT (AUTO) 7.2 K/uL (4.8-10.8)
[2022-06-15 21:10] LABS: CALCIUM 9.7 mg/dL (8.4-11.0); CREATININE 1.45 mg/dL (0.55-1.30)
[2022-06-16] VITALS (36 sets, daily range): BP systolic 109–150
[2022-06-16] MEDS: PIPERACILLIN/TAZO 3.375/DEX-IS 50 ML IV SCH ×4 (00:57→17:14)
[2022-06-16] MEDS ORDERED: DEXTROSE 50% JECT 50 ML DISP.SYRIN IVP PRN (01:15)
[2022-06-16] MEDS ORDERED: GLUCOSE (DEXTROSE) ORAL GEL -Adults PO PRN (01:15)
[2022-06-16] MEDS ORDERED: D5W 1,000 ML IV PRN (01:15)
[2022-06-16] MEDS: PROPOFOL DRIP 100 ML IV PRN ×4 (02:26→22:11)
[2022-06-16] MEDS: ACETYLCYSTEINE 20% 4 ML VIAL (RT) INH SCH ×5 (03:48→20:03)
[2022-06-16] MEDS: IPRATROPIUM BROM 0.5 MG/2.5 ML VIAL.NEB (ATROVENT) INH SCH ×6 (03:48→23:42)
[2022-06-16] MEDS: ALBUTEROL SULFATE 0.083% 2.5 MG/3 ML VIAL.NEB INH PRN ×6 (03:49→23:41)
[2022-06-16] MEDS: D5W 1,000 ML IV SCH ×3 (04:34→23:30)
[2022-06-16] MEDS: NORMAL SALINE 5 ML DISP.SYRIN IVF SCH ×3 (06:04→21:25)
[2022-06-16 07:16] LABS: CALCIUM 9.3 mg/dL (8.4-11.0); CREATININE 1.52 mg/dL (0.55-1.30)
[2022-06-16 07:26] LABS: C-REACTIVE PROTEIN QUANT 23.7 mg/dL (0-0.5)
[2022-06-16 07:39] LABS: BASOPHILS % (AUTO) 0.2 % (0.0-2.0); EOSINOPHILS # (AUTO) 0.2 K/uL (0.0-0.4); EOSINOPHILS % (AUTO) 3.3 % (0.0-4.0); HEMATOCRIT 28.4 % (36-48); HEMOGLOBIN 9.4 g/dL (12.0-16.0); LYMPHOCYTES # (AUTO) 0.8 K/uL (1.0-5.5); LYMPHOCYTES % (AUTO) 10.1 % (20.5-51.5); MEAN CORPUSCULAR HEMOGLOBIN 29 pg (27-31); MEAN CORPUSCULAR HGB CONC 33 % (32-36); MEAN CORPUSCULAR VOLUME 86 fL (79.0-98.0); MONOCYTES # (AUTO) 0.4 K/uL (0.0-1.0); MONOCYTES % (AUTO) 4.9 % (1.7-9.3); NEUTROPHILS # (AUTO) 6.1 K/uL (1.8-7.7); NEUTROPHILS % (AUTO) 81.5 % (40.0-70.0); PLATELET COUNT (AUTO) 418 K/uL (130-430); RED BLOOD CELL COUNT(AUTO) 3.29 MIL/uL (4.2-6.2); RED CELL DISTRIBUTION WIDTH 15.5 % (9.0-15.0); WHITE BLOOD COUNT (AUTO) 7.5 K/uL (4.8-10.8)
--- NOTE | 2022-06-16 08:23 | NUR ---
pt pulled out NGT at the change of shift and refused reinsertion. Pt is alert and responding approriately so we will ask swallow eval from Md on their rounds Addendum: 06/16/22 at 0835 by [facility], CARLTON RN perevious notes about Ngt is not for her. Nurse found Gastrostomy tube out at [address] foey in the gt site or hole to keep it open, so I inserted NGT via rt. nare with good result. We apply a icelandic 18 and flushe with 10 ml N. saline and we informed Dr. Watson and ordered GI consult.Dr. Villela was called and Dr Vides was on and paged
[2022-06-16 08:48] LABS: ERYTHROCYTE SEDIMENTATION RATE 116 MM/HR (0-20)
[2022-06-16] MEDS: METOPROLOL TARTRATE 5 MG/5 ML VIAL IVP SCH ×2 (09:00→20:56)
[2022-06-16] MEDS: levETIRAcetam 500 MG in NS 100 ML IV SCH ×2 (09:25→21:24)
[2022-06-16] MEDS: POLYETHYLENE GLYCOL 3350, 17 GM/ POWD.PACK PO SCH (09:29)
[2022-06-16] MEDS: LANSOPRAZOLE 30 MG CAPSULE.DR GT SCH (09:30)
[2022-06-16] MEDS: ENOXAPARIN SODIUM 30 MG/0.3 ML SYRINGE SQ SCH (09:30)
[2022-06-16] MEDS: clonazePAM 0.5 MG TABLET GT SCH ×2 (09:30→21:23)
[2022-06-16] MEDS: MINERAL OIL 30 ML UDC PO SCH (09:30)
[2022-06-16] MEDS: CHLORHEXIDINE GLUC 0.12% 15 ML MOUTHWASH UDC MM SCH ×2 (09:31→20:56)
[2022-06-16] MEDS: NOREPINEPHRINE BITARTRATE 8 MG in D5W 242 ML IV PRN (09:36)
[2022-06-16] MEDS: INSULIN GLARGINE 100 UNITS/ML, 10 ML VIAL SQ SCH ×2 (09:50→21:43)
[2022-06-16] MEDS: ACETAMINOPHEN 650 MG/20.3 ML UDC GT PRN (10:11)
[2022-06-16] MEDS ORDERED: POTASSIUM CHLORIDE 20 MEQ/PKT PACKET NG ONE ×2 (10:15→12:15)
[2022-06-16] MEDS: INSULIN REGULAR, HUMAN 100 UNITS/ML, 3 ML VIAL (humuLIN R) SUBCUT PRN (12:24)
[2022-06-16] MEDS ORDERED: GASTROGRAFIN 120 ML ONE (18:36)
[2022-06-16] MEDS: FENTANYL CITRATE-0.9 % NACL/PF 100 ML IV PRN (21:44)
[2022-06-17] VITALS (35 sets, daily range): BP systolic 102–140
[2022-06-17] MEDS: ACETYLCYSTEINE 20% 4 ML VIAL (RT) INH SCH ×7 (00:01→23:34)
[2022-06-17] MEDS: PIPERACILLIN/TAZO 3.375/DEX-IS 50 ML IV SCH ×5 (01:38→23:20)
[2022-06-17] MEDS: ALBUTEROL SULFATE 0.083% 2.5 MG/3 ML VIAL.NEB INH PRN ×6 (03:42→23:24)
[2022-06-17] MEDS: IPRATROPIUM BROM 0.5 MG/2.5 ML VIAL.NEB (ATROVENT) INH SCH ×6 (03:43→23:24)
[2022-06-17] MEDS: FENTANYL CITRATE-0.9 % NACL/PF 100 ML IV PRN (05:30)
[2022-06-17] MEDS: NORMAL SALINE 5 ML DISP.SYRIN IVF SCH ×3 (06:00→21:18)
[2022-06-17 07:22] LABS: BASOPHILS % (AUTO) 0.4 % (0.0-2.0); EOSINOPHILS # (AUTO) 0.2 K/uL (0.0-0.4); EOSINOPHILS % (AUTO) 3.1 % (0.0-4.0); HEMATOCRIT 27.5 % (36-48); HEMOGLOBIN 9.3 g/dL (12.0-16.0); LYMPHOCYTES # (AUTO) 1.1 K/uL (1.0-5.5); LYMPHOCYTES % (AUTO) 14.3 % (20.5-51.5); MEAN CORPUSCULAR HEMOGLOBIN 29 pg (27-31); MEAN CORPUSCULAR HGB CONC 34 % (32-36); MEAN CORPUSCULAR VOLUME 85 fL (79.0-98.0); MONOCYTES # (AUTO) 0.6 K/uL (0.0-1.0); MONOCYTES % (AUTO) 7.4 % (1.7-9.3); NEUTROPHILS # (AUTO) 5.6 K/uL (1.8-7.7); NEUTROPHILS % (AUTO) 74.8 % (40.0-70.0); PLATELET COUNT (AUTO) 430 K/uL (130-430); RED BLOOD CELL COUNT(AUTO) 3.22 MIL/uL (4.2-6.2); RED CELL DISTRIBUTION WIDTH 15.4 % (9.0-15.0); WHITE BLOOD COUNT (AUTO) 7.5 K/uL (4.8-10.8)
[2022-06-17 07:35] LABS: C-REACTIVE PROTEIN QUANT 28.5 mg/dL (0-0.5); CALCIUM 8.3 mg/dL (8.4-11.0); CREATININE 1.39 mg/dL (0.55-1.30)
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
[2022-06-17] MEDS: INSULIN GLARGINE 100 UNITS/ML, 10 ML VIAL SQ SCH ×2 (08:50→21:00)
[2022-06-17] MEDS: levETIRAcetam 500 MG in NS 100 ML IV SCH ×2 (08:51→20:43)
[2022-06-17] MEDS: ACETAMINOPHEN 650 MG/20.3 ML UDC GT PRN ×2 (08:52→08:59)
[2022-06-17] MEDS: METOPROLOL TARTRATE 5 MG/5 ML VIAL IVP SCH ×2 (09:00→20:45)
[2022-06-17] MEDS: ENOXAPARIN SODIUM 30 MG/0.3 ML SYRINGE SQ SCH (09:04)
[2022-06-17] MEDS: CHLORHEXIDINE GLUC 0.12% 15 ML MOUTHWASH UDC MM SCH ×2 (09:05→20:43)
[2022-06-17] MEDS: clonazePAM 0.5 MG TABLET GT SCH ×2 (09:05→20:42)
[2022-06-17] MEDS: LANSOPRAZOLE 30 MG CAPSULE.DR GT SCH (09:05)
[2022-06-17] MEDS ORDERED: POTASSIUM CHLORIDE 20 MEQ/PKT PACKET GT ONE (10:00)
--- NOTE | 2022-06-17 10:10 | NUR ---
Dr Spencer Watson was called for low K-3.2
[2022-06-17] MEDS: D5W 1,000 ML IV SCH ×2 (10:19→17:00)
[2022-06-17] MEDS: INSULIN REGULAR, HUMAN 100 UNITS/ML, 3 ML VIAL (humuLIN R) SUBCUT PRN (11:33)
[2022-06-17 11:50] LABS: ERYTHROCYTE SEDIMENTATION RATE 114 MM/HR (0-20)
--- NOTE | 2022-06-17 13:46 | NUR ---
weaning diprivan as pt monitor shows severe bradycardeic -40/min and weaning the levophed at 0.02mcg kg/ min
[2022-06-17] MEDS: PROPOFOL DRIP 100 ML IV PRN (15:19)
[2022-06-18] VITALS (28 sets, daily range): BP systolic 97–147
[2022-06-18] MEDS: INSULIN REGULAR, HUMAN 100 UNITS/ML, 3 ML VIAL (humuLIN R) SUBCUT PRN ×2 (00:09→06:53)
[2022-06-18] MEDS: D5W 1,000 ML IV SCH (03:13)
[2022-06-18] MEDS: ALBUTEROL SULFATE 0.083% 2.5 MG/3 ML VIAL.NEB INH PRN ×5 (03:22→23:15)
[2022-06-18] MEDS: IPRATROPIUM BROM 0.5 MG/2.5 ML VIAL.NEB (ATROVENT) INH SCH ×6 (03:23→23:15)
[2022-06-18] MEDS: ACETYLCYSTEINE 20% 4 ML VIAL (RT) INH SCH ×6 (03:35→23:15)
[2022-06-18] MEDS: PIPERACILLIN/TAZO 3.375/DEX-IS 50 ML IV SCH ×3 (05:11→18:00)
[2022-06-18] MEDS: NORMAL SALINE 5 ML DISP.SYRIN IVF SCH ×3 (05:11→22:11)
[2022-06-18 07:28] LABS: ALBUMIN 1.7 g/dL (3.4-4.8); CALCIUM 8.1 mg/dL (8.4-11.0); CREATININE 1.29 mg/dL (0.55-1.30); TOTAL BILIRUBIN 0.5 mg/dL (0.0-1.0)
[2022-06-18] MEDS ORDERED: POTASSIUM CHLORIDE 20 MEQ/PKT PACKET PO ONE (08:00)
[2022-06-18 08:25] LABS: BASOPHILS % (AUTO) 0.3 % (0.0-2.0); EOSINOPHILS # (AUTO) 0.2 K/uL (0.0-0.4); EOSINOPHILS % (AUTO) 3.3 % (0.0-4.0); HEMATOCRIT 22.3 % (36-48); HEMOGLOBIN 7.6 g/dL (12.0-16.0); LYMPHOCYTES # (AUTO) 1.3 K/uL (1.0-5.5); LYMPHOCYTES % (AUTO) 19.4 % (20.5-51.5); MEAN CORPUSCULAR HEMOGLOBIN 29 pg (27-31); MEAN CORPUSCULAR HGB CONC 34 % (32-36); MEAN CORPUSCULAR VOLUME 85 fL (79.0-98.0); MONOCYTES # (AUTO) 0.4 K/uL (0.0-1.0); MONOCYTES % (AUTO) 6.2 % (1.7-9.3); NEUTROPHILS # (AUTO) 4.8 K/uL (1.8-7.7); NEUTROPHILS % (AUTO) 70.8 % (40.0-70.0); PLATELET COUNT (AUTO) 421 K/uL (130-430); RED BLOOD CELL COUNT(AUTO) 2.63 MIL/uL (4.2-6.2); RED CELL DISTRIBUTION WIDTH 15.9 % (9.0-15.0); WHITE BLOOD COUNT (AUTO) 6.7 K/uL (4.8-10.8)
[2022-06-18] MEDS: levETIRAcetam 500 MG in NS 100 ML IV SCH ×2 (08:56→22:24)
[2022-06-18] MEDS: METOPROLOL TARTRATE 5 MG/5 ML VIAL IVP SCH ×2 (08:59→21:00)
[2022-06-18] MEDS: INSULIN GLARGINE 100 UNITS/ML, 10 ML VIAL SQ SCH ×2 (09:00→22:26)
[2022-06-18] MEDS: ENOXAPARIN SODIUM 30 MG/0.3 ML SYRINGE SQ SCH (09:01)
[2022-06-18] MEDS: LANSOPRAZOLE 30 MG CAPSULE.DR GT SCH (09:03)
[2022-06-18] MEDS: CHLORHEXIDINE GLUC 0.12% 15 ML MOUTHWASH UDC MM SCH ×2 (09:03→20:48)
[2022-06-18] MEDS: clonazePAM 0.5 MG TABLET GT SCH ×2 (09:03→22:24)
[2022-06-18 10:26] LABS: ERYTHROCYTE SEDIMENTATION RATE > 140 MM/HR (0-20)
[2022-06-18] MEDS ORDERED: LOPERAMIDE HCL 2 MG CAPSULE PO PRN (10:30)
--- NOTE | 2022-06-18 16:34 | NUR ---
Nutrition F/U: Admitting Diagnosis: Pneumonia, respiratory failure Reviewed Pertinent Medical/Surgical Hx Medical Record; Other Medical History Comment: Per EMR review, PMH of CVA, TBI, DM, GERD, HTN, seizure disorder, chronic respiratory failure, CKD, anemia, dysphagia, trach/GT dependent. Pt admitted for respiratory distress. Dx of sepsis, anemia, acute on chronic respiratory failure, multifocal pneumonia. Rapid Response/Code Blue activated 06/13 at 1025. Subjective Information: RD rounded to ICU and witnessed patient trach/vent and sedated. RD noted levo off, propofol 24.93mcg/8.14mL (provides additional 215kcals), and IVF at 100mL. RD witnessed Glucerna 1.2 infusing at 20mL goal rate. Per EMR, pt noted with 0mL GRV, tolerating TF. Per RD chart review, GT dislodged 06/16; GT replaced and pt tolerating feeding, noted with diarrhea per MD note. Current EN order, Propofol, and D5W provides daily: 995kcals (576 EN), 28g PRO, 986mL (386 EN), inadequate to meet patients nutritional needs/metabolic demands at this time. Current Diet Order/Nutrition Support: Glucerna 1.2 @ 20ml/hr (goal), 150ml FWF Q6h via GT x 4 days Patient/Significant Other Unable To Verbalize Education Provided Not Indicated Pertinent Medications: Piper/Tazo IV, Imodium, D5W at 50mL (204 kcals), SSI, IV Fluids, Lansoprazole, Lovenox, Lopressor, Klonopin, Lantus, Pertinent Labs: Drawn 06/18 - Hgb 7.6 L, K 2.9 L, BG 159 H, POC BG 160, 137, 94 H, Ca 8.1 L Height (Feet) 5 feet Height (Inches) 9.00 inches Weight (Pounds) 118 pounds Weight (Calculated Kilograms) 53.678297 kilograms Patient Weight 53.524 kg Body Mass Index 17.42 kg/m2 %IBW 81 [place]/Adjusted Body Weight 145#/65.9kg IBW. Weight Status Underweight Last BM Jun 16, 2022 x 2 per EMR Difficulty With: Chewing Swallowing Skin Integrity Comment: Donald Score 10: no wounds/PIs per EMR review; no documented edema 06/18 Current % PO 0% - NPO Estimated Energy Expenditure (kcals/day) 1361 (PSU -- Ve 7.32, Tmax 36.6) Estimated Protein Required (g/day) 32-64 (0.6-1.2g/kg CBW d/t CKD, sepsis) Estimated Fluid Required (l/day) Defer to MD d/t CKD. Problem/Etiology/Signs/Symptoms * Risk of overfeeding R/T inappropriate TF rate AEB estimated caloric and protein needs for sepsis (Resolved) * Inadequate EN infusion r/t diet order a/e/b current TF provides 73% estimated caloric and 87% estimated lower PRO needs (New) Expected Outcomes/Goals Monitor nutritional intakes w/ goal of meeting >75% of estimated nutritional needs, labs trending WNL, normal GI function, and skin integrity/wt maintenance. Dietitian Recommendations * Consider adjust EN: Glucerna 1.2 at 35mL/hr (goal), FWF per MD Provides daily (+D5W, Prop): 1427 kcals (1008 EN), 50g PRO, 676mL FW Meets: 105% estimated caloric needs and 78% estimated upper PRO * Recommend Culturelle High Risk: F/U in 2-3days
--- NOTE | 2022-06-18 16:38 | NUR ---
Dietitian Recommendations * Consider adjust EN: Glucerna 1.2 at 35mL/hr (goal), Free Water Flushes per MD Provides daily (+D5W, Prop): 1427 kcals (1008 EN), 50g PRO, 676mL Free Water Meets: 105% estimated caloric needs and 78% estimated upper PRO needs * Recommend Culturelle Please refer to nutrition F/U for details, thanks! CC, MPH, RDN
[2022-06-18] MEDS: FENTANYL CITRATE-0.9 % NACL/PF 100 ML IV PRN (21:30)
[2022-06-19] VITALS (28 sets, daily range): BP systolic 94–127
[2022-06-19] MEDS: PIPERACILLIN/TAZO 3.375/DEX-IS 50 ML IV SCH ×5 (00:50→23:40)
[2022-06-19] MEDS: D5W 1,000 ML IV SCH ×2 (03:30→23:40)
[2022-06-19] MEDS: IPRATROPIUM BROM 0.5 MG/2.5 ML VIAL.NEB (ATROVENT) INH SCH ×6 (04:11→23:20)
[2022-06-19] MEDS: ALBUTEROL SULFATE 0.083% 2.5 MG/3 ML VIAL.NEB INH PRN ×6 (04:11→23:20)
[2022-06-19] MEDS: ACETYLCYSTEINE 20% 4 ML VIAL (RT) INH SCH ×6 (04:13→23:21)
[2022-06-19] MEDS: NORMAL SALINE 5 ML DISP.SYRIN IVF SCH ×3 (05:28→21:10)
[2022-06-19 07:28] LABS: BASOPHILS % (AUTO) 0.7 % (0.0-2.0); EOSINOPHILS # (AUTO) 0.2 K/uL (0.0-0.4); EOSINOPHILS % (AUTO) 3.8 % (0.0-4.0); HEMATOCRIT 23.8 % (36-48); LYMPHOCYTES # (AUTO) 1.3 K/uL (1.0-5.5); MEAN CORPUSCULAR HEMOGLOBIN 29 pg (27-31); MEAN CORPUSCULAR HGB CONC 34 % (32-36); MEAN CORPUSCULAR VOLUME 84 fL (79.0-98.0); MONOCYTES # (AUTO) 0.4 K/uL (0.0-1.0); MONOCYTES % (AUTO) 6.4 % (1.7-9.3); NEUTROPHILS # (AUTO) 3.7 K/uL (1.8-7.7); NEUTROPHILS % (AUTO) 66.1 % (40.0-70.0); PLATELET COUNT (AUTO) 503 K/uL (130-430); RED BLOOD CELL COUNT(AUTO) 2.83 MIL/uL (4.2-6.2); RED CELL DISTRIBUTION WIDTH 15.4 % (9.0-15.0); WHITE BLOOD COUNT (AUTO) 5.6 K/uL (4.8-10.8)
[2022-06-19 07:53] LABS: C-REACTIVE PROTEIN QUANT 9.6 mg/dL (0-0.5); CALCIUM 8.1 mg/dL (8.4-11.0); CREATININE 1.34 mg/dL (0.55-1.30); PHOSPHORUS 4.3 mg/dL (2.7-4.5)
[2022-06-19 08:37] LABS: ERYTHROCYTE SEDIMENTATION RATE 121 MM/HR (0-20)
--- NOTE | 2022-06-19 08:51 | NUR ---
SPOKE WITH WILLIAM AT OFFICE, REQUESTING ORDERS FROM DR. FREEMAN
[2022-06-19] MEDS: METOPROLOL TARTRATE 5 MG/5 ML VIAL IVP SCH ×2 (09:00→20:59)
[2022-06-19] MEDS ORDERED: KCL 40 mEq in 100 mL (PREMIX) 100 ML IV ONE (09:00)
[2022-06-19] MEDS: LANSOPRAZOLE 30 MG CAPSULE.DR GT SCH (10:16)
[2022-06-19] MEDS: ENOXAPARIN SODIUM 30 MG/0.3 ML SYRINGE SQ SCH (10:16)
[2022-06-19] MEDS: levETIRAcetam 500 MG in NS 100 ML IV SCH ×2 (10:16→20:56)
[2022-06-19] MEDS: clonazePAM 0.5 MG TABLET GT SCH ×2 (10:16→20:56)
[2022-06-19] MEDS: CHLORHEXIDINE GLUC 0.12% 15 ML MOUTHWASH UDC MM SCH ×2 (10:16→21:01)
[2022-06-19] MEDS: INSULIN GLARGINE 100 UNITS/ML, 10 ML VIAL SQ SCH ×2 (10:19→21:10)
[2022-06-19] MEDS: INSULIN REGULAR, HUMAN 100 UNITS/ML, 3 ML VIAL (humuLIN R) SUBCUT PRN ×2 (13:25→23:55)
[2022-06-20] VITALS (29 sets, daily range): BP systolic 108–139
[2022-06-20] MEDS: ALBUTEROL SULFATE 0.083% 2.5 MG/3 ML VIAL.NEB INH PRN ×4 (02:24→15:11)
[2022-06-20] MEDS: IPRATROPIUM BROM 0.5 MG/2.5 ML VIAL.NEB (ATROVENT) INH SCH ×6 (02:24→23:10)
[2022-06-20] MEDS: ACETYLCYSTEINE 20% 4 ML VIAL (RT) INH SCH ×6 (02:25→23:10)
[2022-06-20] MEDS: PIPERACILLIN/TAZO 3.375/DEX-IS 50 ML IV SCH ×3 (05:39→17:18)
[2022-06-20] MEDS: NORMAL SALINE 5 ML DISP.SYRIN IVF SCH ×2 (05:39→14:00)
[2022-06-20 06:54] LABS: BASOPHILS % (AUTO) 0.6 % (0.0-2.0); EOSINOPHILS # (AUTO) 0.2 K/uL (0.0-0.4); EOSINOPHILS % (AUTO) 3.3 % (0.0-4.0); HEMATOCRIT 26.8 % (36-48); HEMOGLOBIN 8.9 g/dL (12.0-16.0); LYMPHOCYTES # (AUTO) 1.2 K/uL (1.0-5.5); LYMPHOCYTES % (AUTO) 19.1 % (20.5-51.5); MEAN CORPUSCULAR HEMOGLOBIN 29 pg (27-31); MEAN CORPUSCULAR HGB CONC 33 % (32-36); MEAN CORPUSCULAR VOLUME 86 fL (79.0-98.0); MONOCYTES # (AUTO) 0.5 K/uL (0.0-1.0); MONOCYTES % (AUTO) 7.7 % (1.7-9.3); NEUTROPHILS # (AUTO) 4.5 K/uL (1.8-7.7); NEUTROPHILS % (AUTO) 69.3 % (40.0-70.0); PLATELET COUNT (AUTO) 562 K/uL (130-430); RED BLOOD CELL COUNT(AUTO) 3.11 MIL/uL (4.2-6.2); RED CELL DISTRIBUTION WIDTH 15.8 % (9.0-15.0); WHITE BLOOD COUNT (AUTO) 6.5 K/uL (4.8-10.8)
[2022-06-20 07:01] LABS: ALBUMIN 1.9 g/dL (3.4-4.8); CALCIUM 8.7 mg/dL (8.4-11.0); CREATININE 1.37 mg/dL (0.55-1.30); TOTAL BILIRUBIN 0.3 mg/dL (0.0-1.0)
[2022-06-20 08:30] LABS: ERYTHROCYTE SEDIMENTATION RATE 119 MM/HR (0-20)
[2022-06-20] MEDS ORDERED: KCL 40 mEq in 100 mL (PREMIX) 250 ML IV ONE (08:30)
[2022-06-20] MEDS: METOPROLOL TARTRATE 5 MG/5 ML VIAL IVP SCH ×2 (09:00→21:29)
[2022-06-20] MEDS: clonazePAM 0.5 MG TABLET GT SCH ×2 (09:42→21:27)
[2022-06-20] MEDS: LANSOPRAZOLE 30 MG CAPSULE.DR GT SCH (09:42)
[2022-06-20] MEDS: CHLORHEXIDINE GLUC 0.12% 15 ML MOUTHWASH UDC MM SCH ×2 (09:42→21:30)
[2022-06-20] MEDS: levETIRAcetam 500 MG in NS 100 ML IV SCH ×2 (09:42→21:28)
[2022-06-20] MEDS: ENOXAPARIN SODIUM 30 MG/0.3 ML SYRINGE SQ SCH (09:46)
[2022-06-20] MEDS: INSULIN GLARGINE 100 UNITS/ML, 10 ML VIAL SQ SCH ×2 (09:46→21:00)
[2022-06-20] MEDS ORDERED: POTASSIUM CHLORIDE 40 MEQ in NS 250 ML IV ONE (10:45)
--- NOTE | 2022-06-20 11:05 | NUR ---
RT NOTES (still awaiting bivona trach tube that dr mercado ordered) excessive coughing noted, trach tube had to be manipulated to pass sxn catheter through, elevated PIP noted. pt is having issue with feeding as well (per RN). pt was medicated by rn, repositioning pt's head, appears to resolve elevated PIP. left bedside once pt appears to be resting comfortably with good exh Vt and PIP. will cont. to monitor pt
[2022-06-20] MEDS: LORazepam 2 MG/ML VIAL IVP PRN (11:53)
[2022-06-20] MEDS: METOCLOPRAMIDE HCL 10 MG/2 ML VIAL IVP SCH ×2 (11:56→17:18)
--- NOTE | 2022-06-20 15:07 | NUR ---
0800: CHRONIC TRACH TO VENT, OPEN EYES TO STIMULI, DOES NOT ATTEMPT TO COMMUNICATE. NO S/S OF ANY ACUTE DISTRESS NOTED. WILL CONTINUE TO REASSESS NEEDS PRN. TUBE FEEDING @ 30CC/HR. WILL ASSESS FOR RESIDUAL WHEN GIVING MED THIS AM. SKIN WARM AND DRY WITH STAGE I COCCYX AREA WITH DRESSING IN PLACE. 0930: FEEDING RESIDUAL OVER 200 CC, WITH HOLD TUBE FEEDING AND REASSESS IN 2 HRS. ABNORMAL LAB RESULT MADE DR. BURCIAGA WITH NEW ORDER RECEIVED NOTED AND WILL CARRY OUT ORDERED. WILL CONTINUE TO REASSESS PRN. 1330: RESIDUAL STILL OVER 100CC WILL REASSESS AGAIN IN 2 HR.
--- NOTE | 2022-06-20 19:23 | NUR ---
1900: VS MORE STABLE, AM DOSE OF METOPROLOL IV PUSH HELD, NO MORE RESIDUAL THRU G-TUBE ABLE TO RESTART FEEDING VIA G-TUBE @ 20 CC/HR, NO SEIZURE ACTIVITY NOTED. NO ADVERSE REACTION FROM IV ANTIBIOTIC NOTED. ENDORSED PATIENT TO PM SHIFT NURSE.
[2022-06-20] MEDS: D5W 1,000 ML IV SCH (21:27)
--- NOTE | 2022-06-20 21:36 | NUR ---
LOPRESSOR IV 5MG ONLY GIVEN VSS HAS HX OF JOVANY DOWN TO 30 IN AM.
[2022-06-21] VITALS (31 sets, daily range): BP systolic 104–153
--- NOTE | 2022-06-21 | NUR ---
LANTUS HELD BS -105 HAS EPISODE OF HYPOGLYCEMIA INTERMITTENTLY,MAY LOWER LANTUS DOSE IF POSSIBLE.
[2022-06-21] MEDS: PIPERACILLIN/TAZO 3.375/DEX-IS 50 ML IV SCH ×4 (00:33→17:49)
[2022-06-21] MEDS: NORMAL SALINE 5 ML DISP.SYRIN IVF SCH ×3 (00:33→15:12)
[2022-06-21] MEDS: METOCLOPRAMIDE HCL 10 MG/2 ML VIAL IVP SCH ×4 (00:34→17:51)
[2022-06-21] MEDS: ALBUTEROL SULFATE 0.083% 2.5 MG/3 ML VIAL.NEB INH PRN ×3 (02:39→11:20)
[2022-06-21] MEDS: IPRATROPIUM BROM 0.5 MG/2.5 ML VIAL.NEB (ATROVENT) INH SCH ×5 (02:40→19:20)
[2022-06-21] MEDS: ACETYLCYSTEINE 20% 4 ML VIAL (RT) INH SCH ×5 (02:40→19:00)
--- NOTE | 2022-06-21 05:00 | NUR ---
COMPLETE BEDBATH DONE, CHG BATH GIVEN, HAD BM TURN AND RPOSITION TO COMFORT, LINEN CHANGED, SHIRLEY AREA EXCORIATED Z-GUARD APPLIED ORAL CARE AND EYE CARE DONE, SUCTION TRACHEAL WITH MODERATE WHITISH SECRETIONS.,VSS.
[2022-06-21] MEDS: INSULIN REGULAR, HUMAN 100 UNITS/ML, 3 ML VIAL (humuLIN R) SUBCUT PRN (06:14)
[2022-06-21 07:23] LABS: BASOPHILS % (AUTO) 0.5 % (0.0-2.0); EOSINOPHILS # (AUTO) 0.2 K/uL (0.0-0.4); EOSINOPHILS % (AUTO) 3.8 % (0.0-4.0); HEMATOCRIT 22.7 % (36-48); HEMOGLOBIN 7.8 g/dL (12.0-16.0); LYMPHOCYTES # (AUTO) 1.4 K/uL (1.0-5.5); LYMPHOCYTES % (AUTO) 24.1 % (20.5-51.5); MEAN CORPUSCULAR HEMOGLOBIN 29 pg (27-31); MEAN CORPUSCULAR HGB CONC 34 % (32-36); MEAN CORPUSCULAR VOLUME 85 fL (79.0-98.0); MONOCYTES # (AUTO) 0.4 K/uL (0.0-1.0); MONOCYTES % (AUTO) 7.2 % (1.7-9.3); NEUTROPHILS # (AUTO) 3.6 K/uL (1.8-7.7); NEUTROPHILS % (AUTO) 64.4 % (40.0-70.0); PLATELET COUNT (AUTO) 487 K/uL (130-430); RED BLOOD CELL COUNT(AUTO) 2.66 MIL/uL (4.2-6.2); RED CELL DISTRIBUTION WIDTH 15.5 % (9.0-15.0); WHITE BLOOD COUNT (AUTO) 5.6 K/uL (4.8-10.8)
[2022-06-21 07:34] LABS: C-REACTIVE PROTEIN QUANT 4.9 mg/dL (0-0.5); CALCIUM 8.9 mg/dL (8.4-11.0); CREATININE 1.25 mg/dL (0.55-1.30)
--- NOTE | 2022-06-21 08:00 | NUR ---
RN NOTES ON SAME VENT SETTING WITH SAME VENT SETTING, SPO2 GOOD. SR ON THE MONITOR. VITALS CHECKED AND RECORDED.
[2022-06-21] MEDS: ENOXAPARIN SODIUM 30 MG/0.3 ML SYRINGE SQ SCH (09:00)
[2022-06-21] MEDS: CHLORHEXIDINE GLUC 0.12% 15 ML MOUTHWASH UDC MM SCH (09:02)
[2022-06-21] MEDS: clonazePAM 0.5 MG TABLET GT SCH (09:07)
[2022-06-21] MEDS: METOPROLOL TARTRATE 5 MG/5 ML VIAL IVP SCH (09:19)
[2022-06-21] MEDS: LANSOPRAZOLE 30 MG CAPSULE.DR GT SCH (09:19)
[2022-06-21] MEDS: levETIRAcetam 500 MG in NS 100 ML IV SCH (09:38)
[2022-06-21] MEDS ORDERED: PIPE3.379 IV (09:40)
[2022-06-21] MEDS: INSULIN GLARGINE 100 UNITS/ML, 10 ML VIAL SQ SCH (09:43)
[2022-06-21] MEDS ORDERED: POTASSIUM CHLORIDE 20 MEQ TAB.PRT.SR GT ONE (09:45)
[2022-06-21] MEDS: D5W 1,000 ML IV SCH (10:00)
--- NOTE | 2022-06-21 10:44 | NUR ---
Discharge Planning: DCP faxed pt referral to [facility] [phone] DCP to follow up Addendum: 06/21/22 at 1634 by Laura WANG DCP arranged transport with [facility] [phone] CCT specialty w/RT time requested 6:30pm to [facility] [phone] Rm 34.
[2022-06-21 11:49] LABS: ERYTHROCYTE SEDIMENTATION RATE 124 MM/HR (0-20)
--- NOTE | 2022-06-21 15:17 | NUR ---
Nutrition F/U Admitting Diagnosis: Pneumonia, respiratory failure Reviewed Pertinent Medical/Surgical Hx Medical Record; Patient Medical History Comment: Per EMR review, PMH of CVA, TBI, DM, GERD, HTN, seizure disorder, chronic respiratory failure, CKD, anemia, dysphagia, trach/GT dependent. Pt admitted for respiratory distress. Dx of sepsis, anemia, acute on chronic respiratory failure, multifocal pneumonia. Rapid Response/Code Blue activated 06/13 at 1025. Per previous RD note: GT dislodged 06/16, GT replaced and pt tolerating feeding. Subjective Information: Rope Maker rounded to pt bedside, pt awake w/ eyes open but nonresponsive. Rope Maker witnessed Glucerna 1.2 TF infusing at rate of 40ml/hr, 647ml infused at time of visit. Rope Maker witnessed D5W infusing at rate of 50ml/hr (provides 204kcal/day) and Propofol running at 5mcg (1.6ml/hr -- provides 42kcal/day). Rope Maker witnessed pt trach/vent -- Ve 10.8. CBW 124# via bedscale -- questionable 6# wt gain since last visit. Current TF order provides daily (w/ D5W, propofol): 1398kcal (1152kcal from TF), 58g protein, 1373ml free water Meets: 94% of estimated caloric needs, 85% of upper end of estimated protein needs Current Diet Order/Nutrition Support: Glucerna 1.2 @ 40ml/hr (goal), 150ml FWF Q6h via GT x 2 days Patient/Significant Other Unable To Verbalize Education Provided Not Indicated Pertinent Medications: Piper/Tazo IV, Imodium, D5W at 50mL (204 kcals), SSI, IV Fluids, Lansoprazole, Lovenox, Lopressor, Klonopin, Lantus, Pertinent Labs: Drawn 06/21 - Hgb 7.8 L, K 3.2 L - improving, BG 134 H - improving, POC BG 157 H, Ca 8.9 WNL Anthropometrics: Height: 5'9 Previous Weight: 118#/53.5kg NEW Bedscale Weight: 124#/56.4kg NEW Body Mass Index: 18.3 kg/m2 NEW %IBW: 86 [place]/Adjusted Body Weight: 145#/65.9kg IBW. Weight Status: Underweight Last BM: 06/21 Skin Integrity Comment: Donald Score 11: ? R leg wound; no documented edema 06/21 Current % PO 0% - NPO NEW Estimated Energy Expenditure (kcals/day) 1495 (PSU -- Ve 10.8, Tmax 36.6) NEW Estimated Protein Required (g/day) 34-68 (0.6-1.2g/kg CBW d/t CKD, sepsis) Estimated Fluid Required (l/day) Defer to MD d/t CKD. Problem/Etiology/Signs/Symptoms * Risk of overfeeding R/T inappropriate TF rate AEB estimated caloric and protein needs for sepsis (Resolved) * Inadequate EN infusion r/t diet order a/e/b current TF provides 73% estimated caloric and 87% estimated lower PRO needs (Resolved) Expected Outcomes/Goals Monitor nutritional intakes w/ goal of meeting >75% of estimated nutritional needs, labs trending WNL, normal GI function, and skin integrity/wt maintenance. Dietitian Recommendations * Continue Glucerna 1.2 at 40mL/hr (goal), 150ml FWF Q6h via GT Current TF order provides daily (w/ D5W, propofol): 1398kcal (1152kcal from TF), 58g protein, 1373ml free water Meets: 94% of estimated caloric needs, 85% of upper end of estimated protein needs * Recommend Culturelle Mod Risk: F/U in 3-5days Follow Up By: Jun 26, 2022 Co-Signed By: Georgie Brown, MS, RD
--- NOTE | 2022-06-21 15:19 | NUR ---
Dietitian Recommendations * Continue Glucerna 1.2 at 40mL/hr (goal), 150ml FWF Q6h via GT Current TF order provides daily (w/ D5W, propofol): 1398kcal (1152kcal from TF), 58g protein, 1373ml free water Meets: 94% of estimated caloric needs, 85% of upper end of estimated protein needs * Recommend Theo VELASCO, MS, RD Please refer to Nutrition F/U for details.
--- NOTE | 2022-06-21 17:15 | NUR ---
RN NOTES PM CARE DONE. REPOSITIONED FOR COMFORT.
--- NOTE | 2022-06-21 18:00 | NUR ---
RN NOTES BS - 56 MG/DL 1 AMP D50 GIVEN SQ
--- NOTE | 2022-06-21 18:19 | NUR ---
RN NOTES BS RECHECKED - 182 MG/DL
--- NOTE | 2022-06-21 19:10 | NUR ---
RECD REPORT FROM NEDA VINCENT FOR TRANSFER TO [facility] AT 2030 ETA
--- NOTE | 2022-06-21 20:15 | NUR ---
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 2039 TAKEN TO [facility] VIA [facility] CANDELARIA, D/C IVF AND TUBE FEEDING REPORT TO DANIEL VINCENT [facility] TEAM.
[2022-06-21] MEDS ORDERED: chlordiazePOXIDE HCL 25 MG CAPSULE ONE (21:35)
== END 2022-06-21 21:33 | disposition short-term general hospital (02) | DRG 720 ==
LOC: SED 19:59 → STU 06-11 01:19 → SIC 06-13 10:43
PROVIDERS: ADMIT Preventive Medicine Preventive Medicine/Occupational Environmental Medicine; ATTEND Preventive Medicine Preventive Medicine/Occupational Environmental Medicine
PROC: 5A1955Z Respiratory Ventilation, Greater than 96 Consecutive Hours (ICD-10-PCS; principal; 2022-06-10)
PROC: 0BH17EZ Insertion of Endotracheal Airway into Trachea, Via Natural or Artificial Opening (ICD-10-PCS; 2022-06-10)
PROC: 30233N1 Transfusion of Nonautologous Red Blood Cells into Peripheral Vein, Percutaneous Approach (ICD-10-PCS; 2022-06-14)
PROC: 0BJ08ZZ Inspection of Tracheobronchial Tree, Via Natural or Artificial Opening Endoscopic (ICD-10-PCS; 2022-06-14)
DX: A41.9 Sepsis, unspecified organism (principal); J96.21 Acute and chronic respiratory failure with hypoxia; R65.21 Severe sepsis with septic shock; E43 Unspecified severe protein-calorie malnutrition; J15.6 Pneumonia due to other Gram-negative bacteria; J15.1 Pneumonia due to Pseudomonas; E87.0 Hyperosmolality and hypernatremia; D64.9 Anemia, unspecified; E11.22 Type 2 diabetes mellitus with diabetic chronic kidney disease; E11.65 Type 2 diabetes mellitus with hyperglycemia; E83.39 Other disorders of phosphorus metabolism; E88.09 Other disorders of plasma-protein metabolism, not elsewhere classified; E83.51 Hypocalcemia; E87.20 Acidosis, unspecified; D75.839 Thrombocytosis, unspecified; K21.9 Gastro-esophageal reflux disease without esophagitis; E87.5 Hyperkalemia; E83.52 Hypercalcemia; R13.10 Dysphagia, unspecified; I12.9 Hypertensive chronic kidney disease with stage 1 through stage 4 chronic kidney disease, or unspecified chronic kidney disease; E87.6 Hypokalemia; G40.909 Epilepsy, unspecified, not intractable, without status epilepticus; K21.00 Gastro-esophageal reflux disease with esophagitis, without bleeding; N17.9 Acute kidney failure, unspecified; K59.00 Constipation, unspecified; Z20.822 Contact with and (suspected) exposure to COVID-19; N18.9 Chronic kidney disease, unspecified; Z99.11 Dependence on respirator [ventilator] status; Z93.0 Tracheostomy status; Z79.899 Other long term (current) drug therapy; Z86.73 Personal history of transient ischemic attack (TIA), and cerebral infarction without residual deficits; Z93.1 Gastrostomy status; Z68.1 Body mass index [BMI] 19.9 or less, adult
CPT/HCPCS: 36415; 36600; 71045; 71275; 74240-TC; 74250-TC; 76376; 80048; 80053; 80202; 81000; 82550; 82803-TC; 82962; 83605; 83735; 83880; 84100; 84484; 85025; 85379; 85651-TC; 86140; 86886; 86900; 86901; 86920; 87040; 87070-TC; 87081; 87086; 87205-TC; 92950; 93005; 94002; 94003; 94640; 94760; 99291; G0378; J0171; J0456; J0692; J0696; J1650; J1815; J1940; J1953; J2060; J2543; J2704; J2765; J3010; J3480; J3490; J7030; J7050; J7060; J7608; J7613; P9021; Q9963; Q9964; Q9967